=== PATIENT | female | born 1980 | race American Indian/Alaskan Native ===

== ENCOUNTER 2016-05-27 10:20 | Outpatient (CLI) | payer MEDICARE ==
[2016-05-27] MEDS ORDERED: XYLOCAINE TOPICAL 2% TP ONE (10:47)
== END 2016-05-27 10:21 | disposition home or self-care (01) ==
LOC: WOUND 10:20
PROVIDERS: ATTEND Podiatrist
DX: E11.621 Type 2 diabetes mellitus with foot ulcer (principal); L97.512 Non-pressure chronic ulcer of other part of right foot with fat layer exposed; R63.4 Abnormal weight loss; Z86.73 Personal history of transient ischemic attack (TIA), and cerebral infarction without residual deficits
CPT/HCPCS: 87075; 87076; 87116; 87186

== ENCOUNTER 2016-05-27 11:39 | Outpatient (CLI) | payer MEDICARE | END 2016-05-27 11:40 | disposition home or self-care (01) | LOC: WOUND 11:39 | PROVIDERS: ATTEND Podiatrist | DX: E11.621 Type 2 diabetes mellitus with foot ulcer (principal); L97.512 Non-pressure chronic ulcer of other part of right foot with fat layer exposed; L84 Corns and callosities; R63.4 Abnormal weight loss; Z86.73 Personal history of transient ischemic attack (TIA), and cerebral infarction without residual deficits | CPT/HCPCS: G0463-25 ==

== ENCOUNTER 2016-06-03 08:18 | Outpatient (CLI) | payer MEDICARE ==
[2016-06-03] MEDS ORDERED: XYLOCAINE TOPICAL 2% TP ONE ×2 (08:38→08:52)
== END 2016-06-03 08:19 | disposition home or self-care (01) ==
LOC: WOUND 08:18
PROVIDERS: ATTEND Podiatrist
DX: E11.621 Type 2 diabetes mellitus with foot ulcer (principal); L97.512 Non-pressure chronic ulcer of other part of right foot with fat layer exposed; L84 Corns and callosities; R63.4 Abnormal weight loss; Z86.73 Personal history of transient ischemic attack (TIA), and cerebral infarction without residual deficits

== ENCOUNTER 2017-07-27 08:04 | Outpatient (CLI) | payer MEDICARE ==
[2017-07-27] MEDS ORDERED: XYLOCAINE TOPICAL 4% TP ONE ×2 (08:37→09:00)
[2017-07-27 11:19] LABS: Hematocrit 32.2 % (30.3-42.9); Hemoglobin 10.4 gm/dl (10.1-14.3)
== END 2017-07-27 08:05 | disposition home or self-care (01) ==
LOC: WOUND 08:04
PROVIDERS: ATTEND Surgery
DX: E11.621 Type 2 diabetes mellitus with foot ulcer (principal); L97.521 Non-pressure chronic ulcer of other part of left foot limited to breakdown of skin; Z86.73 Personal history of transient ischemic attack (TIA), and cerebral infarction without residual deficits; Z90.710 Acquired absence of both cervix and uterus
CPT/HCPCS: 11042; 36415; 83036; 85014; 85018; G0463

== ENCOUNTER 2017-08-03 08:01 | Outpatient (CLI) | payer MEDICARE ==
[2017-08-03] MEDS ORDERED: XYLOCAINE TOPICAL 4% TP ONE ×2 (08:27→08:36)
== END 2017-08-03 08:02 | disposition home or self-care (01) ==
LOC: WOUND 08:01
PROVIDERS: ATTEND Surgery
DX: E11.621 Type 2 diabetes mellitus with foot ulcer (principal); L97.521 Non-pressure chronic ulcer of other part of left foot limited to breakdown of skin; Z86.73 Personal history of transient ischemic attack (TIA), and cerebral infarction without residual deficits; Z90.710 Acquired absence of both cervix and uterus

== ENCOUNTER 2017-08-10 08:03 | Outpatient (CLI) | payer MEDICARE ==
[2017-08-10] MEDS ORDERED: XYLOCAINE TOPICAL 4% TP ONE ×2 (08:15→08:35)
[2017-08-10] MEDS ORDERED: SILVER NITRATE TP ONE ×2 (09:03→09:19)
== END 2017-08-10 08:04 | disposition home or self-care (01) ==
LOC: WOUND 08:03
PROVIDERS: ATTEND Surgery
DX: E11.621 Type 2 diabetes mellitus with foot ulcer (principal); L97.521 Non-pressure chronic ulcer of other part of left foot limited to breakdown of skin; Z86.73 Personal history of transient ischemic attack (TIA), and cerebral infarction without residual deficits; Z90.710 Acquired absence of both cervix and uterus

== ENCOUNTER 2017-08-24 12:51 | Outpatient (CLI) | payer MEDICARE ==
[2017-08-24] MEDS ORDERED: XYLOCAINE TOPICAL 4% TP ONE ×2 (13:23→15:05)
== END 2017-08-24 12:52 | disposition home or self-care (01) ==
LOC: WOUND 12:51
PROVIDERS: ATTEND Surgery
DX: E11.621 Type 2 diabetes mellitus with foot ulcer (principal); L97.521 Non-pressure chronic ulcer of other part of left foot limited to breakdown of skin; Z86.73 Personal history of transient ischemic attack (TIA), and cerebral infarction without residual deficits; Z90.710 Acquired absence of both cervix and uterus

== ENCOUNTER 2018-09-19 02:38 | Inpatient (IN) | payer MEDICARE ==
[2018-09-19] MEDS ORDERED: NACL 0.9% 1000 ML 1,000 ML IV ONE ×3 (02:47→09:33)
[2018-09-19 03:05] LABS: Basophils # (Auto) 0.1 K/mm3 (0.0-0.1); Eosinophils # (Auto) 0.1 K/mm3 (0.0-0.4); Eosinophils % (Auto) 0.6 % (0.0-4.3); Hematocrit 35.3 % (30.3-42.9); Hemoglobin 11.6 gm/dl (10.1-14.3); Lymphocytes # (Auto) 1.9 K/mm3 (1.2-5.4); Lymphocytes % (Auto) 19.1 % (13.4-35.0); Mean Corpuscular HGB Conc 33 % (30-34); Mean Corpuscular Volume 83 fl (79-97); Monocytes # (Auto) 0.6 K/mm3 (0.0-0.8); Monocytes % (Auto) 6.2 % (0.0-7.3); Platelet Count 295 K/mm3 (140-440); Red Blood Count 4.26 M/mm3 (3.65-5.03); Red Cell Distribution Width 15.5 % (13.2-15.2)
[2018-09-19 03:20] LABS: Albumin 3.8 g/dL (3.9-5); Calcium 8.4 mg/dL (8.4-10.2)
[2018-09-19] MEDS ORDERED: REGLAN ONE (04:42)
[2018-09-19] MEDS ORDERED: PHENERGAN PR ONE ×2 (05:25→07:42)
[2018-09-19] MEDS ORDERED: MORPHINE IV ONE (07:42)
[2018-09-19] MEDS ORDERED: PEPCID IV ONE (07:43)
[2018-09-19] MEDS ORDERED: MAGNESIUM SULFATE 2GM/50ML 2 GM/50 ML BAG IV ONE (08:49)
[2018-09-19] MEDS ORDERED: HumuLIN R IV ONE (08:52)
--- NOTE | 2018-09-19 09:15 | Cat Scan Report ---
CT abdomen pelvis wo con INDICATION / CLINICAL INFORMATION: Generalized abdominal pain with nausea, vomiting and diarrhea. Acute renal insufficiency. Diabetes me llitus. TECHNIQUE: All CT scans at this location are performed using CT dose reduction for ALARA by means of automated e xposure control. COMPARISON: None available. FINDINGS: ABDOMEN: There is symmetric enhancement of both kidneys despite IV contrast. Retention of contrast fr om a prior exam could have this appearance. No other renal abnormality is seen. The gallbladder is heck rgically absent. The liver, spleen, bile ducts, pancreas, and adrenal glands demonstrate no significa nt abnormality. No adenopathy is seen. There is moderately severe diffuse thickening of the wall of the distal esophagus. The lung bases are clear. PELVIS: The distal ureters and urinary bladder are normal. No contrast is seen in the urinary bladder . The uterus is not identified. I see no evidence of adnexal mass or free fluid. A normal appendix is present and there is no evidence of diverticulitis. There is a moderate-sized fat-containing periumb ilical hernia without complication. No acute osseous abnormality is seen. IMPRESSION: 1. Diffuse thickening of the wall of the visualized distal esophagus is probably related to moderatel y severe esophagitis. Upper endoscopy may be helpful in further evaluation. 2. Faint contrast in both kidneys may be related to a prior contrast exam with cortical retention, an d the patient's history of acute renal failure. Signer Name: Joel Zimmerman MD Signed: 09/19/2018 9:11 AM Workstation Name: [id number]
--- NOTE | 2018-09-19 09:18 | Emergency Department Report ---
ED N/V/D HPI - General Chief complaint: Nausea/Vomiting/Diarrhea Stated complaint: VOMITING W/DIARRHEA Time Seen by Provider: 09/19/18 07:21 Source: patient, RN notes reviewed, old records reviewed Mode of arrival: Wheelchair Limitations: No Limitations - History of Present Illness Initial comments: 38-year-old female with a past medical history a previous TIA, diabetes, previous cholecystectomy, , hysterectomy and left BKA presents to the Hospital complains of nausea, vomiting, diarrhea, and abdominal pain 1 week. Poor by mouth tolerance reported. She complains of generalized burning, sharp and crampy abdominal pain that is worse with palpation. Pain rated 10/10 in intensity. She denies dysuria, melena, hematochezia, hematemesis, fever, sick contacts, recent antibiotic use, or recent travel. She denies a history of previous renal dysfunction. Pt was at an other ER last week for same symptoms and had a ct abd pelvis with IV contrast. PMD: [facility]. - Related Data Home Medications Medication Instructions Recorded Confirmed Last Taken Insulin Glargine [Lantus] 55 unit SUB-Q QHS 07/04/14 07/09/14 06/02/16 22:00 55 Insulin Aspart [NovoLOG Flexpen] 10 06/03/16 06/02/16 08:00 10units Allergies Allergy/AdvReac Type Severity Reaction Status Date / Time hydrocodone Allergy Itching Verified 07/27/17 09:00 metoclopramide [From Reglan] Allergy Hives Verified 09/19/18 04:43 ondansetron Allergy Hives Verified 07/27/17 09:00 [From Zofran (as hydrochloride)] prochlorperazine Allergy Hives Verified 09/19/18 04:43 [From Compazine] ED Review of Systems ROS: Stated complaint: VOMITING W/DIARRHEA Other details as noted in HPI Comment: All other systems reviewed and negative ED Past Medical Hx - Past Medical History Previous Medical History?: Yes Hx Hypertension: No Hx CVA: Yes (TIA) Hx Heart Attack/AMI: No Hx Congestive Heart Failure: No Hx Diabetes: Yes (since age of 18) Hx Liver Disease: No Hx Renal Disease: No Hx Sickle Cell Disease: No Hx Headaches / Migraines: Yes ( past hx) Hx Seizures: No Hx Asthma: No Hx COPD: No Hx HIV: No - Surgical History Hx Cholecystectomy: Yes (gallstones removed) Hx Breast Surgery: Yes (reduction) Additional Surgical History: X 2LEFT FOOT SURGERY. Hysterectomy. BKA left - Social History Smoking Status: Never Smoker Substance Use Type: None - Medications Home Medications: Home Medications Medication Instructions Recorded Confirmed Last Taken Type Insulin Glargine [Lantus] 55 unit SUB-Q QHS 07/04/14 07/09/14 06/02/16 22:00 History 55 Insulin Aspart [NovoLOG Flexpen] 10 06/03/16 06/02/16 08:00 History 10units ED Physical Exam - General Limitations: No Limitations ED Course Vital Signs 09/19/18 09/19/18 09/19/18 02:42 03:01 03:16 Temperature 97.4 F L Pulse Rate 111 H Respiratory 18 Rate Blood Pressure 144/95 167/97 Blood Pressure [Left] O2 Sat by Pulse 100 100 93 Oximetry 09/19/18 09/19/18 09/19/18 03:30 03:45 04:00 Temperature Pulse Rate Respiratory Rate Blood Pressure 158/97 158/97 158/97 Blood Pressure [Left] O2 Sat by Pulse 91 91 Oximetry 09/19/18 09/19/18 09/19/18 04:15 04:30 04:46 Temperature Pulse Rate Respiratory Rate Blood Pressure 158/97 194/114 158/97 Blood Pressure [Left] O2 Sat by Pulse 82 L 100 100 Oximetry 09/19/18 09/19/18 09/19/18 05:00 05:16 05:30 Temperature Pulse Rate Respiratory Rate Blood Pressure 197/130 197/130 175/109 Blood Pressure [Left] O2 Sat by Pulse 97 100 99 Oximetry 09/19/18 09/19/18 09/19/18 05:46 06:00 06:16 Temperature Pulse Rate Respiratory Rate Blood Pressure 175/109 182/101 182/101 Blood Pressure [Left] O2 Sat by Pulse 98 94 96 Oximetry 09/19/18 09/19/18 09/19/18 06:30 06:46 07:00 Temperature 98.9 F Pulse Rate 106 H Respiratory 16 Rate Blood Pressure 167/104 167/104 Blood Pressure 151/100 [Left] O2 Sat by Pulse 96 97 100 Oximetry 09/19/18 09:12 Temperature 98.9 F Pulse Rate 104 H Respiratory 16 Rate Blood Pressure Blood Pressure 141/97 [Left] O2 Sat by Pulse 98 Oximetry - Consultations Consultation #1: 09/19/18 09:47 case d/w Dr Perez, specification consultant nephro. will consult ED Medical Decision Making - Lab Data Result diagrams: 09/19/18 02:46 09/19/18 02:46 Lab Results 09/19/18 09/19/18 09/19/18 Range/Units 02:46 02:46 02:46 WBC 10.0 (4.5-11.0) K/mm3 RBC 4.26 (3.65-5.03) M/mm3 Hgb 11.6 (10.1-14.3) gm/dl Hct 35.3 (30.3-42.9) % MCV 83 (79-97) fl MCH 27 L (28-32) pg MCHC 33 (30-34) % RDW 15.5 H (13.2-15.2) % Plt Count 295 (140-440) K/mm3 Lymph % (Auto) 19.1 (13.4-35.0) % Wilkinson % (Auto) 6.2 (0.0-7.3) % Eos % (Auto) 0.6 (0.0-4.3) % Baso % (Auto) 1.0 (0.0-1.8) % Lymph # 1.9 (1.2-5.4) K/mm3 Wilkinson # 0.6 (0.0-0.8) K/mm3 Eos # 0.1 (0.0-0.4) K/mm3 Baso # 0.1 (0.0-0.1) K/mm3 Seg Neutrophils % 73.1 H (40.0-70.0) % Seg Neutrophils # 7.3 (1.8-7.7) K/mm3 VBG pH (7.320-7.420) Sodium 137 (137-145) mmol/L Potassium 3.3 L (3.6-5.0) mmol/L Chloride 89.1 L (98-107) mmol/L Carbon Dioxide 26 (22-30) mmol/L Anion Gap 25 mmol/L BUN 39 H (7-17) mg/dL Creatinine 2.3 H (0.7-1.2) mg/dL Estimated GFR 29 ml/min BUN/Creatinine Ratio 17 % Glucose 345 H (65-100) mg/dL POC Glucose (70-105) Calcium 8.4 (8.4-10.2) mg/dL Magnesium 1.50 L (1.7-2.3) mg/dL Total Bilirubin 0.70 (0.1-1.2) mg/dL AST 12 (5-40) units/L ALT 9 (7-56) units/L Alkaline Phosphatase 125 (35-129) units/L Total Protein 7.6 (6.3-8.2) g/dL Albumin 3.8 L (3.9-5) g/dL Albumin/Globulin Ratio 1.0 % Lipase 79 H (13-60) units/L 09/19/18 09/19/18 09/19/18 Range/Units 02:50 02:52 08:59 WBC (4.5-11.0) K/mm3 RBC (3.65-5.03) M/mm3 Hgb (10.1-14.3) gm/dl Hct (30.3-42.9) % MCV (79-97) fl MCH (28-32) pg MCHC (30-34) % RDW (13.2-15.2) % Plt Count (140-440) K/mm3 Lymph % (Auto) (13.4-35.0) % Wilkinson % (Auto) (0.0-7.3) % Eos % (Auto) (0.0-4.3) % Baso % (Auto) (0.0-1.8) % Lymph # (1.2-5.4) K/mm3 Wilkinson # (0.0-0.8) K/mm3 Eos # (0.0-0.4) K/mm3 Baso # (0.0-0.1) K/mm3 Seg Neutrophils % (40.0-70.0) % Seg Neutrophils # (1.8-7.7) K/mm3 VBG pH 7.533 H (7.320-7.420) Sodium (137-145) mmol/L Potassium (3.6-5.0) mmol/L Chloride (98-107) mmol/L Carbon Dioxide (22-30) mmol/L Anion Gap mmol/L BUN (7-17) mg/dL Creatinine (0.7-1.2) mg/dL Estimated GFR ml/min BUN/Creatinine Ratio % Glucose (65-100) mg/dL POC Glucose 316 H 342 H (70-105) Calcium (8.4-10.2) mg/dL Magnesium (1.7-2.3) mg/dL Total Bilirubin (0.1-1.2) mg/dL AST (5-40) units/L ALT (7-56) units/L Alkaline Phosphatase (35-129) units/L Total Protein (6.3-8.2) g/dL Albumin (3.9-5) g/dL Albumin/Globulin Ratio % Lipase (13-60) units/L - EKG Data -: EKG Interpreted by [facility] EKG shows normal: sinus rhythm, axis (qrs 45), QRS complexes (qrsd 94), ST-T waves (no stemi) Rate: normal (96) - EKG Data When compared to previous EKG there are: no significant change - Radiology Data Radiology results: report reviewed CT abdomen pelvis wo con INDICATION / CLINICAL INFORMATION: Generalized abdominal pain with nausea, vomiting and diarrhea. Acute renal insufficiency. Diabetes mellitus. TECHNIQUE: All CT scans at this location are performed using CT dose reduction for ALARA by means of automated exposure control. COMPARISON: None available. FINDINGS: ABDOMEN: There is symmetric enhancement of both kidneys despite IV contrast. Retention of contrast from a prior exam could have this appearance. No other renal abnormality is seen. The gallbladder is surgically absent. The liver, spleen, bile ducts, pancreas, and adrenal glands demonstrate no significant abnormality. No adenopathy is seen. There is moderately severe diffuse thickening of the wall of the distal esophagus. The lung bases are clear. PELVIS: The distal ureters and urinary bladder are normal. No contrast is seen in the urinary bladder. The uterus is not identified. I see no evidence of adnexal mass or free fluid. A normal appendix is present and there is no evidence of diverticulitis. There is a moderate-sized fat- containing periumbilical hernia without complication. No acute osseous abnormality is seen. IMPRESSION: 1. Diffuse thickening of the wall of the visualized distal esophagus is probably related to moderately severe esophagitis. Upper endoscopy may be helpful in further evaluation. 2. Faint contrast in both kidneys may be related to a prior contrast exam with cortical retention, and the patient's history of acute renal failure. - Medical Decision Making CT abdomen and pelvis today shows retention of IV contrast in the kidneys. Then patient admitted to receiving contrast for CT performed last week at another ER. Recent IV contrast administration plus dehydration due to poor by mouth tolerance could be contributing to acute renal dysfunction. Patient continues to have nausea and vomiting despite 50 mg of [place] Phenergan and she is allergic to other antibiotics that are available. Ativan 0.5 mg ordered and attempted to have nausea and vomiting. She also received morphine, normal saline, insulin, IV mag, IV kcl, and Pepcid in the ED. She will be admitted to the hospital for further treatment. Awaiting urine collection. Patient has not had urine output with IV fluids nephrology consulted - Differential Diagnosis gastroparesis, gastroenteritis, dehydration, intra-abdominal infection Critical Care Time: No Critical care attestation.: If time is entered above; I have spent that time in minutes in the direct care of this critically ill patient, excluding procedure time. ED Disposition Clinical Impression: Nausea vomiting and diarrhea, Intractable vomiting, Insulin dependent diabetes mellitus, Acute renal insufficiency, Hypokalemia, Hypomagnesemia, HTN (hypertension), Esophagitis Disposition: -09 OP ADMIT IP TO THIS HOSP Is pt being admited?: Yes Condition: Stable Instructions: Hypertension (ED) Referrals: JOEL RUDOLPH [Other] - 3-5 Days Time of Disposition: 09:30
[2018-09-19] MEDS ORDERED: ATIVAN IV ONE ×2 (09:19→21:27)
[2018-09-19] MEDS: KCL 10MEQ/100ML 10 MEQ/100 ML BAG IV SCH ×2 (10:07→16:27)
[2018-09-19] MEDS ORDERED: ULTRAM PO PRN (11:30)
--- NOTE | 2018-09-19 11:34 | History and Physical Report ---
History of Present Illness Date of examination: 09/19/18 Date of admission: 09/19/18 09:31 Chief complaint: Nausea/Vomiting/Diarrhea of one week duration History of present illness: 38-year-old -[place] female patient with significant past medical history of diabetes mellitus.Peripheral vascular dis status post left BKA hypertension dyslipidemia chronic gastritis presented to the emergency room with nausea vomiting diarrhea and abdominal pain off 5-7 days duration.Patient denies history of travel, consuming any new food, medications Patient was evaluated in the emergency room noted to have acute kidney injury, uncontrolled blood sugars to right abnormalities hypokalemia and hypomagnesemia, patient also had mild elevation of lipase.,At the time of my evaluation patient feels slightly better , continues to have intermittent nausea Patient claims compliance with medications Past History Past Medical History: diabetes, hypertension, hyperlipidemia, PVD, other (TIA) Past Surgical History: cholecystectomy, , hysterectomy, Other (left leg amputation. Breast reduction) Social history: lives with family, full code. denies: smoking, alcohol abuse, IV drug use Family history: hypertension Medications and Allergies Allergies Allergy/AdvReac Type Severity Reaction Status Date / Time hydrocodone Allergy Itching Verified 07/27/17 09:00 metoclopramide [From Reglan] Allergy Hives Verified 09/19/18 04:43 ondansetron Allergy Hives Verified 07/27/17 09:00 [From Zofran (as hydrochloride)] prochlorperazine Allergy Hives Verified 09/19/18 04:43 [From Compazine] Home Medications Medication Instructions Recorded Confirmed Last Taken Type AtorvaSTATin [Lipitor] 20 mg PO DAILY 09/19/18 09/19/18 Unknown History Furosemide [Lasix] 20 mg PO BID 09/19/18 09/19/18 Unknown History Insulin Aspart Protam & Aspart 10 units SQ QAM&QHS 09/19/18 09/19/18 Unknown History [NovoLOG Mix 70-30 Flexpen] Insulin Detemir [Levemir VIAL] 55 unit SQ QHS 09/19/18 09/19/18 Unknown History glipiZIDE [Glucotrol] 10 mg PO BID 09/19/18 09/19/18 Unknown History hydroCHLOROthiazide [HCTZ] 25 mg PO QDAY 09/19/18 09/19/18 Unknown History metFORMIN [Glucophage] 500 mg PO BID 09/19/18 09/19/18 Unknown History traMADol [Ultram] 50 mg PO BID PRN 09/19/18 09/19/18 Unknown History Active Meds: Active Medications Atorvastatin Calcium (Lipitor) 20 mg PO DAILY PAOLA Furosemide (Lasix) 20 mg PO BID PAOLA Glipizide (Glucotrol) 10 mg PO BID PAOLA Hydrochlorothiazide (Hctz) 25 mg PO QDAY PAOLA Potassium Chloride (Kcl 10meq/100ml) 10 meq in 100 mls @ 100 mls/hr IV Q1H PAOLA Stop: 09/19/18 11:59 Last Admin: 09/19/18 10:07 Dose: 100 mls/hr Documented by: Metformin HCl (Glucophage) 500 mg PO BID PAOLA Tramadol HCl (Ultram) 50 mg PO BID PRN PRN Reason: Pain Review of Systems Constitutional: fatigue, weakness, no weight loss, no weight gain, no fever, no chills Ears, nose, mouth and throat: no nasal congestion, no nasal discharge Cardiovascular: no chest pain, no orthopnea Respiratory: no cough, no shortness of breath Gastrointestinal: abdominal pain, nausea, vomiting, diarrhea Genitourinary Female: no flank pain, no dysuria Musculoskeletal: no neck stiffness, no myalgias, no arthritis Integumentary: no rash, no lesions Neurological: weakness, no paralysis, no numbness, no tingling, no seizures Psychiatric: no anxiety, no depression Endocrine: no cold intolerance, no heat intolerance, no polydipsia, no polyuria Hematologic/Lymphatic: no easy bruising, no easy bleeding Allergic/Immunologic: no urticaria, no allergic rhinitis Exam - Constitutional Vitals: Temp Pulse Resp BP Pulse Ox 98.9 F 96 H 16 142/97 98 09/19/18 09:12 09/19/18 10:26 09/19/18 10:26 09/19/18 10:26 09/19/18 10:26 General appearance: Present: no acute distress, well-nourished - EENT Eyes: Present: PERRL, EOM intact - Neck Neck: Present: supple, normal ROM - Respiratory Respiratory effort: normal Respiratory: bilateral: diminished, negative: rales, rhonchi, wheezing - Cardiovascular Rhythm: regular Heart Sounds: Present: S1 & S2 - Extremities Extremities: no ischemia, No edema - Abdominal General gastrointestinal: Present: soft, non-tender, non-distended, normal bowel sounds - Integumentary Integumentary: Present: clear - Musculoskeletal Musculoskeletal: left sided weakness (below-knee amputation) - Neurologic Neurologic: CNII-XII intact, moves all extremities Results - Labs CBC & Chem 7: 09/19/18 02:46 09/19/18 02:46 Labs: Abnormal lab results 09/19/18 09/19/18 09/19/18 Range/Units 02:46 02:46 02:46 MCH 27 L (28-32) pg RDW 15.5 H (13.2-15.2) % Seg Neutrophils % 73.1 H (40.0-70.0) % VBG pH (7.320-7.420) Potassium 3.3 L (3.6-5.0) mmol/L Chloride 89.1 L (98-107) mmol/L BUN 39 H (7-17) mg/dL Creatinine 2.3 H (0.7-1.2) mg/dL Glucose 345 H (65-100) mg/dL POC Glucose (70-105) Magnesium 1.50 L (1.7-2.3) mg/dL Albumin 3.8 L (3.9-5) g/dL Lipase 79 H (13-60) units/L 09/19/18 09/19/18 09/19/18 Range/Units 02:50 02:52 08:59 MCH (28-32) pg RDW (13.2-15.2) % Seg Neutrophils % (40.0-70.0) % VBG pH 7.533 H (7.320-7.420) Potassium (3.6-5.0) mmol/L Chloride (98-107) mmol/L BUN (7-17) mg/dL Creatinine (0.7-1.2) mg/dL Glucose (65-100) mg/dL POC Glucose 316 H 342 H (70-105) Magnesium (1.7-2.3) mg/dL Albumin (3.9-5) g/dL Lipase (13-60) units/L 09/19/18 09/19/18 Range/Units 10:30 11:12 MCH (28-32) pg RDW (13.2-15.2) % Seg Neutrophils % (40.0-70.0) % VBG pH (7.320-7.420) Potassium (3.6-5.0) mmol/L Chloride (98-107) mmol/L BUN (7-17) mg/dL Creatinine (0.7-1.2) mg/dL Glucose (65-100) mg/dL POC Glucose 282 H 279 H (70-105) Magnesium (1.7-2.3) mg/dL Albumin (3.9-5) g/dL Lipase (13-60) units/L Assessment and Plan --Acute Gastritis/Esophgitis; IV Protonix, antiemetics, IV fluids Clear liquids and advance as tolerated GI consult,NPO mid night CT abd and pelvis: 1. Diffuse thickening of the wall of the visualized distal esophagus is probably related to moderately severe esophagitis. Upper endoscopy may be helpful in further evaluation. 2. Faint contrast in both kidneys may be related to a prior contrast exam with cortical retention, and the patient's history of acute renal failure. --Hypokalemia/hypomagnesemia; replace per protocol Monitor electrolytes --Uncontrolled diabetes mellitus; patient claims complaints medications Accu-Chek sliding scale coverage and ADA diet long-acting insulin as well as oral hypoglycemics Check hemoglobin A1c, Diabetic education, nutrition consult Possible Home health nursing discharge for disease monitoring --Acute kidney injury; probably vasomotor nephropathy/ATN Gentle hydration, monitor renal function, avoid nephrotoxins Nephrology consulted --Hypertension; moderate control Resume home antihypertensive and when necessary medications --Dyslipidemia; on lipid-lowering meds Physical cholesterol diet --Peripheral vascular disease; status post left BKA Supportive care --DVT prophylaxis; Lovenox Monitor closely and adjust management as needed Plan of care is reviewed with the patient and her nurse Disposition; follow GI evaluation ,f/u clinically, discharge when the patient is stable I spent a total 50 minutes coordinating this admission
[2018-09-19] MEDS ORDERED: LASIX PO SCH (12:00)
[2018-09-19] MEDS ORDERED: HCTZ PO SCH (12:00)
[2018-09-19] MEDS: HumaLOG SUB-Q SCH ×4 (12:38→23:00)
--- NOTE | 2018-09-19 15:18 | Consultation ---
History of Present Illness - Reason for Consult Consult date: 09/19/18 acute renal failure Requesting physician: GUTIERREZ COOK - History of Present Illness This is a 38 yo AAF with past medical history of IDDM, hypertension, hyperlipidemia, ulcerative esophagitis/erosive gastritis, peripheral vascular disease s/p L BKA, who presents to [facility] with complaints of multiple episodes of nausea, vomiting, diarrhea, and abdominal pain for the last 1 week, which is described as cramp like no clear association with food, leading to decreased po intake. Pt denies dysuria, melena, hematochezia, hematemesis, fever, sick contacts, recent antibiotic use, or recent travel. Patient was seen at [facility] ER on 09/[address] for similar symptoms had CT A/P done with IV contrast, which did not reveal acute findings. labs from [facility] reviewed, BUN/Cr was 21/1.2mg/dl on 09/16/18, which increased to 27/2,11mg/dl on 09/17/18, however patient left AMA before any intervention could be made. Here in [facility], labs showed persistently elevated BUN/Cr at 39/2.3mg/dl along with mild hypokalemia, for which renal consult is requested. Pt received another CT A/P with IV contrast showing diffuse thickening of the distal esophageal wall. Pt denies previous renal disease denies recent NSAIDS use. Past History Past Medical History: diabetes, hypertension, renal failure Past Surgical History: hysterectomy, Other (L BKA) Family history: diabetes Medications and Allergies Allergies Allergy/AdvReac Type Severity Reaction Status Date / Time hydrocodone Allergy Itching Verified 07/27/17 09:00 metoclopramide [From Reglan] Allergy Hives Verified 09/19/18 04:43 ondansetron Allergy Hives Verified 07/27/17 09:00 [From Zofran (as hydrochloride)] prochlorperazine Allergy Hives Verified 09/19/18 04:43 [From Compazine] Home Medications Medication Instructions Recorded Confirmed Last Taken Type AtorvaSTATin [Lipitor] 20 mg PO DAILY 09/19/18 09/19/18 Unknown History Furosemide [Lasix] 20 mg PO BID 09/19/18 09/19/18 Unknown History Insulin Aspart Protam & Aspart 10 units SQ QAM&QHS 09/19/18 09/19/18 Unknown History [NovoLOG Mix 70-30 Flexpen] Insulin Detemir [Levemir VIAL] 55 unit SQ QHS 09/19/18 09/19/18 Unknown History glipiZIDE [Glucotrol] 10 mg PO BID 09/19/18 09/19/18 Unknown History hydroCHLOROthiazide [HCTZ] 25 mg PO QDAY 09/19/18 09/19/18 Unknown History metFORMIN [Glucophage] 500 mg PO BID 09/19/18 09/19/18 Unknown History traMADol [Ultram] 50 mg PO BID PRN 09/19/18 09/19/18 Unknown History Active Meds: Active Medications Atorvastatin Calcium (Lipitor) 20 mg PO DAILY [facility] Furosemide (Lasix) 20 mg PO BID [facility] Last Admin: 09/19/18 12:37 Dose: 20 mg Documented by: Glipizide (Glucotrol) 10 mg PO BIDDIAB [facility] Hydrochlorothiazide (Hctz) 25 mg PO QDAY [facility] Last Admin: 09/19/18 12:37 Dose: 25 mg Documented by: Insulin Glargine (Lantus) 55 units SUB-Q QHS [facility] Insulin Human Lispro (Humalog) 0 unit SUB-Q [facility]; Protocol Last Admin: 09/19/18 12:38 Dose: 3 unit Documented by: Metformin HCl (Glucophage) 500 mg PO BIDDIAB [facility] Tramadol HCl (Ultram) 50 mg PO BID PRN PRN Reason: Pain, Moderate (4-6) Review of Systems All systems: negative Constitutional: fatigue, weakness, malaise, poor appetite Gastrointestinal: abdominal pain, nausea, vomiting, diarrhea Exam - Vital Signs Vital signs: Vital Signs Temp Pulse Resp BP Pulse Ox 97.4 F L 111 H 18 144/95 100 09/19/18 02:42 09/19/18 02:42 09/19/18 02:42 09/19/18 02:42 09/19/18 02:42 - General Appearance General appearance: well-developed, appears stated age EENT: ATNC, PERRL, mucous membranes moist Neck: Present: neck supple Respiratory: Clear to Ascultation Heart: regular, S1S2 Gastrointestinal: Present: normoactive bowel sounds Integumentary: no rash, other (no edema ) Neurologic: no focal deficit, alert and oriented x3, strength 5/5, CN 3-12 intact Psychiatric: mood/affect appropriate, cooperative Results - Lab Results 09/19/18 02:46 09/19/18 02:46 Most recent lab results Calcium 8.4 mg/dL (8.4-10.2) 09/19/18 02:46 Magnesium 1.50 mg/dL (1.7-2.3) L 09/19/18 02:46 Laboratory Tests 09/19/18 09/19/18 09/19/18 02:46 02:46 02:52 VBG pH 7.533 H Calcium 8.4 Magnesium 1.50 L Total Bilirubin 0.70 AST 12 ALT 9 Alkaline Phosphatase 125 Total Protein 7.6 Albumin 3.8 L Albumin/Globulin Ratio 1.0 Lipase 79 H Assessment and Plan - Patient Problems (1) Acute renal insufficiency Current Visit: Yes Status: Acute Plan to address problem: KAT most likely secondary to pre-renal azotemia in the setting of nausea, vomiting/diarrhea, also uncontrolled glucose. Check UA urine lytes, urine protein/cr ratio. Given repeated IV contrast exposure in the setting of KAT, superimposed contrast induced nephropathy may contribute to declining eGFR. Pt s/p IV NS boluses in ER, cont IVF with NS at 75ml/hr, hold lasix/HCTZ for now, avoid further nephrotoxins, IV contrast, NSAIDS, maintain MAP > 65mmhg. Will monitor lytes/renal parameters closely and make further recommendations. (2) Esophagitis Current Visit: Yes Status: Acute Plan to address problem: cont PPI, follow GI recommendations (3) Hypokalemia Current Visit: Yes Status: Acute Plan to address problem: K supplementation with KDur (4) Insulin dependent diabetes mellitus Current Visit: Yes Status: Acute Plan to address problem: glucose control as per primary attending (5) Nausea vomiting and diarrhea Current Visit: Yes Status: Acute Plan to address problem: likely secondary to esophagitis/erosive gastritis cont IVF, pt treated with promethazine, follow GI recommendations
[2018-09-19] MEDS: MORPHINE IV PRN (16:27)
[2018-09-19] MEDS ORDERED: K-DUR PO ONE (17:07)
[2018-09-19] MEDS: PHENERGAN PR PRN (17:42)
[2018-09-19] MEDS: NACL 0.9% 1000 ML 1,000 ML IV SCH (17:42)
[2018-09-19] MEDS: GLUCOTROL PO SCH (18:28)
[2018-09-19 18:51] LABS: Bilirubin,Urine NEG (Negative); Blood,Urine MOD (Negative); Color,Urine Yellow (Yellow); Mucus,Urine FEW /HPF; Urobilinogen,Urine < 2.0 mg/dL (<2.0)
[2018-09-19] MEDS: PROTONIX IV SCH (21:45)
[2018-09-19] MEDS ORDERED: INSULIN DETEMIR 55 UNIT SQ SCH (22:00)
[2018-09-19] MEDS: LANTUS SUB-Q SCH (23:00)
[2018-09-20] MEDS: NACL 0.9% 1000 ML 1,000 ML IV SCH ×2 (03:57→18:55)
[2018-09-20 05:10] LABS: Basophils # (Auto) 0.1 K/mm3 (0.0-0.1); Eosinophils # (Auto) 0.2 K/mm3 (0.0-0.4); Eosinophils % (Auto) 1.8 % (0.0-4.3); Hematocrit 30.3 % (30.3-42.9); Lymphocytes # (Auto) 2.8 K/mm3 (1.2-5.4); Lymphocytes % (Auto) 32.1 % (13.4-35.0); Mean Corpuscular HGB Conc 33 % (30-34); Mean Corpuscular Volume 84 fl (79-97); Monocytes # (Auto) 0.6 K/mm3 (0.0-0.8); Monocytes % (Auto) 6.7 % (0.0-7.3); Platelet Count 257 K/mm3 (140-440); Red Blood Count 3.63 M/mm3 (3.65-5.03); Red Cell Distribution Width 15.2 % (13.2-15.2)
[2018-09-20 05:39] LABS: Calcium 7.7 mg/dL (8.4-10.2)
[2018-09-20] MEDS ORDERED: GLUCOPHAGE PO SCH (08:00)
--- NOTE | 2018-09-20 08:14 | Progress Note ---
Assessment and Plan Assessment and plan: 38-year-old -[place] female patient with significant past medical history of diabetes mellitus.Peripheral vascular dis status post left BKA hypertension dyslipidemia chronic gastritis presented to the emergency room with nausea vomiting diarrhea and abdominal pain off 5-7 days duration.Patient denies history of travel, consuming any new food, medications Patient was evaluated in the emergency room noted to have acute kidney injury, uncontrolled blood sugars to right abnormalities hypokalemia and hypomagnesemia, patient also had mild elevation of lipase., on admission it appears patient was beginning to have some improvement but renal function was significantly elevated , continues to have intermittent nausea Patient claims compliance with medications CT abd and pelvis: 1. Diffuse thickening of the wall of the visualized distal esophagus is probably related to moderately severe esophagitis. Upper endoscopy may be helpful in further evaluation. 2. Faint contrast in both kidneys may be related to a prior contrast exam with cortical retention, and the patient's history of acute renal failure. --Acute Gastritis/Esophgitis; with Nausea and vomiting on admission IV Protonix, antiemetics, IV fluids Start antifungal if any fever noted Clear liquids and advance as tolerated GI consult, NPO since midnight DUE TO PERSISTENT NAUSEA AND VOMITING --Hypokalemia/hypomagnesemia; replace per protocol Monitor electrolytes --Uncontrolled diabetes mellitus; patient claims complaints medications Accu-Chek sliding scale coverage and ADA diet long-acting insulin as well as ora l hypoglycemics Check hemoglobin A1c, Diabetic education, nutrition consult Possible Home health nursing discharge for disease monitoring --Acute kidney injury; probably vasomotor nephropathy/ATN Improving with gentle hydration Gentle hydration, monitor renal function, avoid nephrotoxins Nephrology consulted AND [facility] noted "....hold lasix/HCTZ for now, avoid further nephrotoxins, IV contrast, NSAIDS, maintain MAP > 65mmhg. Will monitor lytes/renal parameters closely and make further recommendations. " --Hypertension; moderate control Resume home antihypertensive and when necessary medications --Dyslipidemia; on lipid-lowering meds Physical cholesterol diet --Peripheral vascular disease; status post left BKA Supportive care --Anxiety DIsorder Ativan x 1 --DVT prophylaxis; Lovenox Monitor closely and adjust management as needed Plan of care is reviewed with the patient and her nurse Disposition; follow GI evaluation ,f/u clinically, discharge when the patient is stable History Interval history: Patient examined this morning continues to complain of nausea vomiting on though was improved this morning. Later this afternoon she started from nursing staff for something to relax apparently she's been given Ativan 2 already. Hospitalist Physical - Physical exam Narrative exam: VITAL SIGNS: Reviewed. GENERAL: The patient appears normally developed, Vital signs as documented. HEAD: No signs of head trauma. EYES: Pupils are equal. Extraocular motions intact. EARS: Hearing grossly intact. MOUTH: Oropharynx is normal. NECK: No adenopathy, no JVD. CHEST: Chest with clear breath sounds bilaterally. No wheezes, rales, or rhonchi. CARDIAC: Regular rate and rhythm. S1 and S2, without murmurs, gallops, or rubs. VASCULAR: No Edema. Peripheral pulses normal and equal in all extremities. ABDOMEN: Soft, non tender and non distended. No rebound or guarding, and no masses palpated. Bowel Sounds normal. MUSCULOSKELETAL: Good range of motion of all major joints. Extremities without clubbing, cyanosis or edema. NEUROLOGIC EXAM: Alert and oriented x 3 No focal sensory or strength deficits. Speech normal. Follows commands. PSYCHIATRIC: Mood normal. SKIN: detial exam as documented in skin assessment - Constitutional Vitals: Temp Pulse Resp BP Pulse Ox 98.9 F 87 20 152/81 100 09/20/18 05:33 09/20/18 05:33 09/20/18 05:33 09/20/18 05:33 09/20/18 05:33 General appearance: Present: no acute distress, well-nourished Results - Labs CBC & Chem 7: 09/20/18 04:22 09/20/18 04:22 Labs: Laboratory Last Values WBC 8.6 K/mm3 (4.5-11.0) 09/20/18 04:22 RBC 3.63 M/mm3 (3.65-5.03) L 09/20/18 04:22 Hgb 10.0 gm/dl (10.1-14.3) L 09/20/18 04:22 Hct 30.3 % (30.3-42.9) 09/20/18 04:22 MCV 84 fl (79-97) 09/20/18 04:22 MCH 28 pg (28-32) 09/20/18 04:22 MCHC 33 % (30-34) 09/20/18 04:22 RDW 15.2 % (13.2-15.2) 09/20/18 04:22 Plt Count 257 K/mm3 (140-440) 09/20/18 04:22 Lymph % (Auto) 32.1 % (13.4-35.0) 09/20/18 04:22 [place] % (Auto) 6.7 % (0.0-7.3) 09/20/18 04:22 Eos % (Auto) 1.8 % (0.0-4.3) 09/20/18 04:22 Baso % (Auto) 1.0 % (0.0-1.8) 09/20/18 04:22 Lymph # 2.8 K/mm3 (1.2-5.4) 09/20/18 04:22 [place] # 0.6 K/mm3 (0.0-0.8) 09/20/18 04:22 Eos # 0.2 K/mm3 (0.0-0.4) 09/20/18 04:22 Baso # 0.1 K/mm3 (0.0-0.1) 09/20/18 04:22 Seg Neutrophils % 58.4 % (40.0-70.0) 09/20/18 04:22 Seg Neutrophils # 5.0 K/mm3 (1.8-7.7) 09/20/18 04:22 VBG pH 7.533 (7.320-7.420) H 09/19/18 02:52 Sodium 140 mmol/L (137-145) 09/20/18 04:22 Potassium 3.0 mmol/L (3.6-5.0) L 09/20/18 04:22 Chloride 98.9 mmol/L (98-107) 09/20/18 04:22 Carbon Dioxide 28 mmol/L (22-30) 09/20/18 04:22 16 mmol/L 09/20/18 04:22 BUN 23 mg/dL (7-17) H 09/20/18 04:22 1.3 mg/dL (0.7-1.2) H 09/20/18 04:22 Estimated GFR 55 ml/min 09/20/18 04:22 18 % 09/20/18 04:22 Glucose 221 mg/dL (65-100) H 09/20/18 04:22 POC Glucose 208 (70-105) H 09/20/18 07:31 Calcium 7.7 mg/dL (8.4-10.2) L 09/20/18 04:22 Magnesium 1.90 mg/dL (1.7-2.3) 09/20/18 04:22 0.70 mg/dL (0.1-1.2) 09/19/18 02:46 AST 12 units/L (5-40) 09/19/18 02:46 ALT 9 units/L (7-56) 09/19/18 02:46 125 units/L (35-129) 09/19/18 02:46 7.6 g/dL (6.3-8.2) 09/19/18 02:46 3.8 g/dL (3.9-5) L 09/19/18 02:46 1.0 % 09/19/18 02:46 79 units/L (13-60) H 09/19/18 02:46 Yellow (Yellow) 09/19/18 18:01 Clear (Clear) 09/19/18 18:01 6.0 (5.0-7.0) 09/19/18 18:01 Ur Specific [place] 1.012 (1.003-1.030) 09/19/18 18:01 100 mg/dl mg/dL (Negative) 09/19/18 18:01 >=500 mg/dL (Negative) 09/19/18 18:01 20 mg/dL (Negative) 09/19/18 18:01 Mod (Negative) 09/19/18 18:01 Neg (Negative) 09/19/18 18:01 Neg (Negative) 09/19/18 18:01 < 2.0 mg/dL (<2.0) 09/19/18 18:01 Ur Leukocyte Esterase Neg (Negative) 09/19/18 18:01 1.0 /HPF (0.0-6.0) 09/19/18 18:01 9.0 /HPF (0.0-6.0) 09/19/18 18:01 U Epithel Cells (Auto) < 1.0 /HPF (0-13.0) 09/19/18 18:01 Few /HPF 09/19/18 18:01 Active Medications - Current Medications Current Medications: Generic Name Dose Route Start Last Admin Trade Name Freq PRN Reason Stop Dose Admin Atorvastatin Calcium 20 mg 09/20/18 10:00 Lipitor PO DAILY [facility] Enoxaparin Sodium 30 mg 09/20/18 10:00 Lovenox SUB-Q QDAY [facility] Glipizide 10 mg 09/19/18 17:00 09/19/18 18:28 Glucotrol PO Not Given BIDDIAB [facility] Sodium Chloride 1,000 mls @ 100 mls/hr 09/19/18 17:00 09/20/18 03:57 Nacl 0.9% 1000 Ml IV 75 mls/hr DIRECT [facility] Administration Potassium Chloride 10 meq in 100 mls @ 100 mls/hr 09/20/18 09:00 Kcl 10meq/100ml IV 09/20/18 12:59 Q1H [facility] Magnesium Sulfate 1 gm/ Sodium 52 mls @ 52 mls/hr 09/20/18 08:12 Chloride IV 09/20/18 09:11 ONCE ONE Insulin Glargine 55 units 09/19/18 22:00 09/19/18 23:00 Lantus SUB-Q Not Given QHS [facility] Insulin Human Lispro 0 unit 09/19/18 12:00 09/19/18 23:00 Humalog SUB-Q Not Given ACHS [facility] Protocol Insulin Human Lispro 8 unit 09/19/18 16:30 09/19/18 18:12 Humalog SUB-Q 8 unit AC [facility] Administration Morphine Sulfate 2 mg 09/19/18 16:07 09/19/18 16:27 Morphine IV 2 mg Q6H PRN Administration Pain, Moderate (4-6) Pantoprazole Sodium 40 mg 09/19/18 22:00 09/19/18 21:45 Protonix IV 40 mg BID [facility] Administration Promethazine HCl 12.5 mg 09/19/18 16:06 09/19/18 17:42 Phenergan [place] 12.5 mg Q6H PRN Administration Nausea And Vomiting Tramadol HCl 50 mg 09/19/18 11:30 Ultram PO BID PRN Pain, Moderate (4-6)
[2018-09-20] MEDS: MORPHINE IV PRN ×2 (09:30→15:16)
[2018-09-20] MEDS ORDERED: MAGNESIUM SULFATE 1 GM in NACL 0.9% 50 ML IV ONE (09:30)
[2018-09-20] MEDS ORDERED: LOVENOX SUB-Q SCH (10:00)
--- NOTE | 2018-09-20 10:04 | Gastroenterology Consultation ---
History of Present Illness - Reason for Consult Consult date: 09/20/18 Nausea, Vomiting, diarrhea Requesting physician: BRADEN SEWELL - History of Present Illness This is a pleasant 38-year-old female with significant medical hx as below presented to the emergency room with nausea vomiting diarrhea and abdominal pain off 5-7 days duration. Patient denies history of travel, consuming any new food, medications. She reports the abdominal pain is diffuse, constant, worse with eating better with nothing, associated with N/V/diarrhea, moderate to severe in severity, cramping in quality no radiation. She reports the symptoms are constant, mildly improved. Home meds reviewed/obtained/updated Past History Past Medical History: diabetes, hypertension, hyperlipidemia, PVD, other (TIA) Past Surgical History: cholecystectomy, , hysterectomy, Other (left leg amputation. Breast reduction) Social history: lives with family, full code. denies: smoking, alcohol abuse, IV drug use Family history: hypertension Medications and Allergies Allergies Allergy/AdvReac Type Severity Reaction Status Date / Time hydrocodone Allergy Itching Verified 07/27/17 09:00 metoclopramide [From Reglan] Allergy Hives Verified 09/19/18 04:43 ondansetron Allergy Hives Verified 07/27/17 09:00 [From Zofran (as hydrochloride)] prochlorperazine Allergy Hives Verified 09/19/18 04:43 [From Compazine] Home Medications Medication Instructions Recorded Confirmed Last Taken Type AtorvaSTATin [Lipitor] 20 mg PO DAILY 09/19/18 09/19/18 Unknown History Furosemide [Lasix] 20 mg PO BID 09/19/18 09/19/18 Unknown History Insulin Aspart Protam & Aspart 10 units SQ QAM&QHS 09/19/18 09/19/18 Unknown History [NovoLOG Mix 70-30 Flexpen] Insulin Detemir [Levemir VIAL] 55 unit SQ QHS 09/19/18 09/19/18 Unknown History glipiZIDE [Glucotrol] 10 mg PO BID 09/19/18 09/19/18 Unknown History hydroCHLOROthiazide [HCTZ] 25 mg PO QDAY 09/19/18 09/19/18 Unknown History metFORMIN [Glucophage] 500 mg PO BID 09/19/18 09/19/18 Unknown History traMADol [Ultram] 50 mg PO BID PRN 09/19/18 09/19/18 Unknown History Active Meds: Active Medications Atorvastatin Calcium (Lipitor) 20 mg PO DAILY [facility] Enoxaparin Sodium (Lovenox) 30 mg SUB-Q QDAY [facility] Glipizide (Glucotrol) 10 mg PO BIDDIAB [facility] Last Admin: 09/19/18 18:28 Dose: Not Given Documented by: Sodium Chloride (Nacl 0.9% 1000 Ml) 1,000 mls @ 100 mls/hr IV DIRECT [facility] Last Admin: 09/20/18 03:57 Dose: 75 mls/hr Documented by: Potassium Chloride (Kcl 10meq/100ml) 10 meq in 100 mls @ 100 mls/hr IV Q1H [facility] Stop: 09/20/18 13:59 Magnesium Sulfate 1 gm/ Sodium (Chloride) 52 mls @ 52 mls/hr IV ONCE ONE Stop: 09/20/18 10:29 Insulin Glargine (Lantus) 55 units SUB-Q QHS [facility] Last Admin: 09/19/18 23:00 Dose: Not Given Documented by: Insulin Human Lispro (Humalog) 0 unit SUB-Q ACHS [facility]; Protocol Last Admin: 09/19/18 23:00 Dose: Not Given Documented by: Insulin Human Lispro (Humalog) 8 unit SUB-Q [facility] Last Admin: 09/19/18 18:12 Dose: 8 unit Documented by: Morphine Sulfate (Morphine) 2 mg IV Q6H PRN PRN Reason: Pain, Moderate (4-6) Last Admin: 09/20/18 09:30 Dose: 2 mg Documented by: Pantoprazole Sodium (Protonix) 40 mg IV BID [facility] Last Admin: 09/19/18 21:45 Dose: 40 mg Documented by: Promethazine HCl (Phenergan) 12.5 mg TN Q6H PRN PRN Reason: Nausea And Vomiting Last Admin: 09/19/18 17:42 Dose: 12.5 mg Documented by: Tramadol HCl (Ultram) 50 mg PO BID PRN PRN Reason: Pain, Moderate (4-6) Review of Systems - Review of Systems All systems: negative Constitutional: fatigue, weakness Gastrointestinal: abdominal pain, nausea, vomiting, diarrhea Musculoskeletal: other (difficulty walking due to leg amputation) Exam - Constitutional Vital Signs: Temp Pulse Resp BP Pulse Ox 98.9 F 87 20 152/81 100 07/25/19 05:33 09/20/18 05:33 09/20/18 05:33 09/20/18 05:33 09/20/18 05:33 General appearance: no acute distress - EENT Eyes: other (no scleral icterus) ENT: hearing intact - Neck Neck: supple - Respiratory Respiratory effort: normal - Cardiovascular Rhythm: regular - Gastrointestinal General gastrointestinal: Present: soft, tender - Integumentary Integumentary: Present: dry - Musculoskeletal Musculoskeletal: other (leg amputation) - Neurologic Neurological: alert and oriented x3 - Psychiatric Psychiatric: appropriate mood/affect - Labs CBC & Chem 7: 09/20/18 04:22 09/20/18 04:22 Lab Results: Laboratory Results - last 24 hr 09/19/18 09/19/18 09/19/18 10:30 11:12 17:59 WBC RBC Hgb Hct MCV MCH MCHC RDW Plt Count Lymph % (Auto) [place] % (Auto) Eos % (Auto) Baso % (Auto) Lymph # [place] # Eos # Baso # Seg Neutrophils % Seg Neutrophils # Sodium Potassium Chloride Carbon Dioxide Anion Gap BUN Creatinine Estimated GFR BUN/Creatinine Ratio Glucose POC Glucose 282 H 279 H 239 H Calcium Magnesium Urine Color Urine Turbidity Urine pH Ur Specific [place] Urine Protein Urine Glucose (UA) Urine Ketones Urine Blood Urine Nitrite Urine Bilirubin Urine Urobilinogen Ur Leukocyte Esterase Urine WBC (Auto) Urine RBC (Auto) U Epithel Cells (Auto) Urine Mucus 09/19/18 09/19/18 09/20/18 18:01 22:28 04:22 WBC 8.6 RBC 3.63 L Hgb 10.0 L Hct 30.3 MCV 84 MCH 28 MCHC 33 RDW 15.2 Plt Count 257 Lymph % (Auto) 32.1 [place] % (Auto) 6.7 Eos % (Auto) 1.8 Baso % (Auto) 1.0 Lymph # 2.8 [place] # 0.6 Eos # 0.2 Baso # 0.1 Seg Neutrophils % 58.4 Seg Neutrophils # 5.0 Sodium Potassium Chloride Carbon Dioxide Anion Gap BUN Creatinine Estimated GFR BUN/Creatinine Ratio Glucose POC Glucose 116 H Calcium Magnesium Urine Color Yellow Urine Turbidity Clear Urine pH 6.0 Ur Specific [place] 1.012 Urine Protein 100 mg/dl Urine Glucose (UA) >=500 Urine Ketones 20 Urine Blood Mod Urine Nitrite Neg Urine Bilirubin Neg Urine Urobilinogen < 2.0 Ur Leukocyte Esterase Neg Urine WBC (Auto) 1.0 Urine RBC (Auto) 9.0 U Epithel Cells (Auto) < 1.0 Urine Mucus Few 09/20/18 09/20/18 04:22 07:31 WBC RBC Hgb Hct MCV MCH MCHC RDW Plt Count Lymph % (Auto) [place] % (Auto) Eos % (Auto) Baso % (Auto) Lymph # [place] # Eos # Baso # Seg Neutrophils % Seg Neutrophils # Sodium 140 Potassium 3.0 L Chloride 98.9 Carbon Dioxide 28 Anion Gap 16 BUN 23 H Creatinine 1.3 H Estimated GFR 55 BUN/Creatinine Ratio 18 Glucose 221 H POC Glucose 208 H Calcium 7.7 L Magnesium 1.90 Urine Color Urine Turbidity Urine pH Ur Specific [place] Urine Protein Urine Glucose (UA) Urine Ketones Urine Blood Urine Nitrite Urine Bilirubin Urine Urobilinogen Ur Leukocyte Esterase Urine WBC (Auto) Urine RBC (Auto) U Epithel Cells (Auto) Urine Mucus Assessment and Plan Most likely acute infectious etiology, supportive care, no indication for endoscopy at this juncture. - Patient Problems (1) Intractable vomiting Current Visit: Yes Status: Acute (2) Nausea vomiting and diarrhea Current Visit: Yes Status: Acute
[2018-09-20] MEDS: HumaLOG SUB-Q SCH ×7 (10:28→22:48)
[2018-09-20] MEDS: GLUCOTROL PO SCH ×2 (10:29→17:56)
[2018-09-20] MEDS: PHENERGAN PR PRN (10:58)
[2018-09-20] MEDS: KCL 10MEQ/100ML 10 MEQ/100 ML BAG IV SCH ×2 (11:49→15:11)
[2018-09-20] MEDS: PROTONIX IV SCH ×2 (13:55→22:47)
[2018-09-20] MEDS ORDERED: ATIVAN IV ONE (15:56)
--- NOTE | 2018-09-20 16:59 | Progress Note ---
Assessment and Plan - Patient Problems (1) Acute renal insufficiency Current Visit: Yes Status: Acute Plan to address problem: KAT most likely secondary to pre-renal azotemia in the setting of nausea, vomiting/diarrhea, also uncontrolled glucose. renal function improving with IVF, cont NS at 75ml/hr, hold lasix/HCTZ for now, avoid further nephrotoxins, IV contrast, NSAIDS, maintain MAP > 65mmhg. Will monitor lytes/renal parameters closely and make further recommendations. (2) Esophagitis Current Visit: Yes Status: Acute Plan to address problem: cont PPI, follow GI recommendations (3) Hypokalemia Current Visit: Yes Status: Acute Plan to address problem: K supplementation with KDur (4) Insulin dependent diabetes mellitus Current Visit: Yes Status: Acute Plan to address problem: glucose control as per primary attending (5) Nausea vomiting and diarrhea Current Visit: Yes Status: Acute Plan to address problem: likely secondary to esophagitis/erosive gastritis cont IVF, pt treated with promethazine, follow GI recommendations Subjective Date of service: 09/20/18 Principal diagnosis: KAT Interval history: Patient awake, alert, in NAD, denies fever, chills, SOB, CP, palpitations, dysuria Objective - Vital Signs Vital signs: Vital Signs - 12hr 09/20/18 09/20/18 09/20/18 05:33 12:02 12:03 Temperature 98.9 F 98.1 F Pulse Rate 87 99 H 95 H Respiratory 20 14 Rate Blood Pressure 152/81 163/92 O2 Sat by Pulse 100 87 100 Oximetry - General Appearance General appearance: well-developed, well-nourished, appears stated age EENT: ATNC, PERRL, mucous membranes moist Neck: no JVD Respiratory: Present: Clear to Ascultation Cardiology: regular, S1S2 Gastrointestinal: normoactive bowel sounds Integumentary: no rash, other (no edema ) Neurologic: no focal deficit, alert and oriented x3, strength 5/5, CN 3-12 intact Psychiatric: mood/affect appropriate, cooperative - Lab 09/20/18 04:22 09/20/18 04:22 Most recent lab results Calcium 7.7 mg/dL (8.4-10.2) L 09/20/18 04:22 Magnesium 1.90 mg/dL (1.7-2.3) 09/20/18 04:22 Medications & Allergies - Medications Allergies/Adverse Reactions: Allergies hydrocodone Allergy (Verified 07/27/17 09:00) Itching metoclopramide [From Reglan] Allergy (Verified 09/19/18 04:43) Hives ondansetron [From Zofran (as hydrochloride)] Allergy (Verified 07/27/17 09:00) Hives prochlorperazine [From Compazine] Allergy (Verified 09/19/18 04:43) Hives Home Medications: Home Medications Medication Instructions Recorded Confirmed Last Taken Type AtorvaSTATin [Lipitor] 20 mg PO DAILY 09/19/18 09/19/18 Unknown History Furosemide [Lasix] 20 mg PO BID 09/19/18 09/19/18 Unknown History Insulin Aspart Protam & Aspart 10 units SQ QAM&QHS 09/19/18 09/19/18 Unknown History [NovoLOG Mix 70-30 Flexpen] Insulin Detemir [Levemir VIAL] 55 unit SQ QHS 09/19/18 09/19/18 Unknown History glipiZIDE [Glucotrol] 10 mg PO BID 09/19/18 09/19/18 Unknown History hydroCHLOROthiazide [HCTZ] 25 mg PO QDAY 09/19/18 09/19/18 Unknown History metFORMIN [Glucophage] 500 mg PO BID 09/19/18 09/19/18 Unknown History traMADol [Ultram] 50 mg PO BID PRN 09/19/18 09/19/18 Unknown History Active Medications: Generic Name Dose Route Start Last Admin Trade Name Freq PRN Reason Stop Dose Admin Atorvastatin Calcium 20 mg 09/20/18 10:00 09/20/18 13:56 Lipitor PO 20 mg DAILY PAOLA Administration Enoxaparin Sodium 40 mg 09/21/18 10:00 Lovenox SUB-Q QDAY@1000 PAOLA Glipizide 10 mg 09/19/18 17:00 09/20/18 10:29 Glucotrol PO Not Given BIDDIAB PAOLA Sodium Chloride 1,000 mls @ 100 mls/hr 09/19/18 17:00 09/20/18 03:57 Nacl 0.9% 1000 Ml IV 75 mls/hr DIRECT PAOLA Administration Insulin Glargine 55 units 09/19/18 22:00 09/19/18 23:00 Lantus SUB-Q Not Given QHS [facility] Insulin Human Lispro 0 unit 09/19/18 12:00 09/20/18 11:30 Humalog SUB-Q Not Given ACHS [facility] Protocol Insulin Human Lispro 8 unit 09/19/18 16:30 09/20/18 11:30 Humalog SUB-Q Not Given AC [facility] Morphine Sulfate 2 mg 09/19/18 16:07 09/20/18 15:16 Morphine IV 2 mg Q6H PRN Administration Pain, Moderate (4-6) Pantoprazole Sodium 40 mg 09/19/18 22:00 09/20/18 13:55 Protonix IV 40 mg BID PAOLA Administration Promethazine HCl 12.5 mg 09/19/18 16:06 09/20/18 10:58 Phenergan IN 12.5 mg Q6H PRN Administration Nausea And Vomiting Tramadol HCl 50 mg 09/19/18 11:30 Ultram PO BID PRN Pain, Moderate (4-6)
[2018-09-20] MEDS: K-DUR PO ONE ×2 (17:18→17:31)
[2018-09-20] MEDS ORDERED: MORPHINE IM ONE (20:00)
[2018-09-20] MEDS: LANTUS SUB-Q SCH (22:47)
[2018-09-21] MEDS: KCL 10MEQ/100ML 10 MEQ/100 ML BAG IV SCH ×2 (00:49→02:28)
[2018-09-21] MEDS: MORPHINE IV PRN ×4 (02:26→21:27)
[2018-09-21] MEDS ORDERED: D50W (25GM) Syringe IV ONE (08:36)
[2018-09-21] MEDS: HumaLOG SUB-Q SCH ×8 (08:55→22:03)
[2018-09-21] MEDS: GLUCOTROL PO SCH (08:56)
[2018-09-21] MEDS: LOVENOX SUB-Q SCH (09:26)
[2018-09-21] MEDS: PROTONIX IV SCH ×2 (09:26→21:27)
[2018-09-21] MEDS: NACL 0.9% 1000 ML 1,000 ML IV SCH ×2 (09:32→22:40)
[2018-09-21] MEDS: PHENERGAN PR PRN (11:00)
--- NOTE | 2018-09-21 11:18 | Progress Note ---
Assessment and Plan - Patient Problems (1) Acute renal insufficiency Current Visit: Yes Status: Acute Plan to address problem: KAT most likely secondary to pre-renal azotemia in the setting of nausea, vomiting/diarrhea, also uncontrolled glucose. renal function improving with IVF, cont NS at 75ml/hr, hold lasix/HCTZ for now, avoid further nephrotoxins, IV contrast, NSAIDS, maintain MAP > 65mmhg. Will monitor lytes/renal parameters closely and make further recommendations. (2) Esophagitis Current Visit: Yes Status: Acute Plan to address problem: cont PPI, follow GI recommendations (3) Hypokalemia Current Visit: Yes Status: Acute Plan to address problem: K supplementation with KDur (4) Insulin dependent diabetes mellitus Current Visit: Yes Status: Acute Plan to address problem: glucose control as per primary attending (5) Nausea vomiting and diarrhea Current Visit: Yes Status: Acute Plan to address problem: likely secondary to esophagitis/erosive gastritis cont IVF, pt treated with promethazine, follow GI recommendations Subjective Date of service: 09/21/18 Principal diagnosis: KAT Interval history: Patient awake, alert, in NAD, denies fever, chills, SOB, CP, palpitations, dysuria. still c/o dysphagia, nausea Objective - Vital Signs Vital signs: Vital Signs - 12hr 09/20/18 23:47 Temperature 99.0 F Pulse Rate 83 Respiratory 18 Rate Blood Pressure 140/76 O2 Sat by Pulse 96 Oximetry - General Appearance General appearance: well-developed, well-nourished, appears stated age EENT: ATNC, PERRL, mucous membranes moist Neck: no JVD Respiratory: Present: Clear to Ascultation Cardiology: regular, S1S2 Gastrointestinal: normoactive bowel sounds Integumentary: no rash, other (no edema, L BKA) Neurologic: no focal deficit, alert and oriented x3, strength 5/5, CN 3-12 intact Psychiatric: mood/affect appropriate, cooperative - Lab 09/20/18 04:22 09/20/18 04:22 Most recent lab results Calcium 7.7 mg/dL (8.4-10.2) L 09/20/18 04:22 Magnesium 1.90 mg/dL (1.7-2.3) 09/20/18 04:22 Medications & Allergies - Medications Allergies/Adverse Reactions: Allergies hydrocodone Allergy (Verified 07/27/17 09:00) Itching metoclopramide [From Reglan] Allergy (Verified 09/19/18 04:43) Hives ondansetron [From Zofran (as hydrochloride)] Allergy (Verified 07/27/17 09:00) Hives prochlorperazine [From Compazine] Allergy (Verified 09/19/18 04:43) Hives Home Medications: Home Medications Medication Instructions Recorded Confirmed Last Taken Type AtorvaSTATin [Lipitor] 20 mg PO DAILY 09/19/18 09/19/18 Unknown History Furosemide [Lasix] 20 mg PO BID 09/19/18 09/19/18 Unknown History Insulin Aspart Protam & Aspart 10 units SQ QAM&QHS 09/19/18 09/19/18 Unknown His tory [NovoLOG Mix 70-30 Flexpen] Insulin Detemir [Levemir VIAL] 55 unit SQ QHS 09/19/18 09/19/18 Unknown History glipiZIDE [Glucotrol] 10 mg PO BID 09/19/18 09/19/18 Unknown History hydroCHLOROthiazide [HCTZ] 25 mg PO QDAY 09/19/18 09/19/18 Unknown History metFORMIN [Glucophage] 500 mg PO BID 09/19/18 09/19/18 Unknown History traMADol [Ultram] 50 mg PO BID PRN 09/19/18 09/19/18 Unknown History Active Medications: Generic Name Dose Route Start Last Admin Trade Name Freq PRN Reason Stop Dose Admin Atorvastatin Calcium 20 mg 09/20/18 10:00 09/21/18 09:26 Lipitor PO 20 mg DAILY PAOLA Administration Enoxaparin Sodium 40 mg 09/21/18 10:00 09/21/18 09:26 Lovenox SUB-Q 40 mg QDAY@1000 PAOLA Administration Sodium Chloride 1,000 mls @ 100 mls/hr 09/19/18 17:00 09/21/18 09:32 Nacl 0.9% 1000 Ml IV 75 mls/hr DIRECT PAOLA Administration Insulin Glargine 55 units 09/19/18 22:00 09/20/18 22:47 Lantus SUB-Q 55 units QHS [facility] Administration Insulin Human Lispro 0 unit 09/19/18 12:00 09/21/18 08:55 Humalog SUB-Q Not Given ACHS [facility] Protocol Insulin Human Lispro 8 unit 09/19/18 16:30 09/21/18 08:56 Humalog SUB-Q Not Given AC [facility] Morphine Sulfate 2 mg 09/19/18 16:07 09/21/18 09:30 Morphine IV 2 mg Q6H PRN Administration Pain, Moderate (4-6) Pantoprazole Sodium 40 mg 09/19/18 22:00 09/21/18 09:26 Protonix IV 40 mg BID PAOLA Administration Promethazine HCl 12.5 mg 09/19/18 16:06 09/20/18 10:58 Phenergan PA 12.5 mg Q6H PRN Administration Nausea And Vomiting Tramadol HCl 50 mg 09/19/18 11:30 Ultram PO BID PRN Pain, Moderate (4-6)
--- NOTE | 2018-09-21 11:38 | Gastroenterology Progress Note ---
Assessment and Plan Regarding acute N/V etc most likely acute infectious etiology but given worsening and refractory, will pursue EGD - Patient Problems (1) Intractable vomiting Current Visit: Yes Status: Acute (2) Nausea vomiting and diarrhea Current Visit: Yes Status: Acute Subjective Date of service: 09/21/18 Principal diagnosis: KAT Interval history: N/V intractable and if anything worse today Objective - Constitutional Vitals: Temp Pulse Resp BP Pulse Ox 99.0 F 83 18 140/76 96 09/20/18 23:47 09/20/18 23:47 09/20/18 23:47 09/20/18 23:47 09/20/18 23:47 General appearance: other (uncomfortable) - Respiratory Respiratory effort: normal - Gastrointestinal General gastrointestinal: Present: soft - Labs CBC & Chem 7: 09/20/18 04:22 09/21/18 13:07 Labs: Laboratory Results - last 24 hr 09/20/18 09/20/18 09/20/18 11:51 16:37 21:29 POC Glucose 225 H 231 H Lipase 68 H 09/20/18 09/21/18 09/21/18 21:29 07:57 11:12 POC Glucose 309 H 104 194 H Lipase
[2018-09-21] MEDS ORDERED: NACL 0.9% 1000 ML 1,000 ML ONE (13:45)
[2018-09-21] MEDS ORDERED: VERSED ONE (13:49)
[2018-09-21] MEDS ORDERED: DIPRIVAN 10 MG/ML IV ONE ×2 (13:50)
[2018-09-21 13:55] LABS: BUN/Creatinine Ratio 13; Blood Urea Nitrogen 12 mg/dL (7-17); Calcium 8.2 mg/dL (8.4-10.2); Hemolysis Index 45
[2018-09-21] MEDS ORDERED: XYLOCAINE MPF 2% ONE (14:00)
--- NOTE | 2018-09-21 14:25 | Operative Report ---
Operative Report Operative Report: DOS: 09/21/18 SURGEON: Alexis Yusuf MD EGD with biopsy REPORT PREOPERATIVE DIAGNOSIS and POSTOPERATIVE DIAGNOSIS: Intractable Nausea and vomiting ESTIMATED BLOOD LOSS: minimal DESCRIPTION OF PROCEDURE: A high-resolution EGD scope was passed through the oropharynx, esophagus, stomach, and second portion of duodenum. The scope was carefully withdrawn. Retroflexion was performed in the stomach. At the end of the procedure, the scope was cleaned using normal technique. Vital signs monitored continuously throughout. SEDATION: Provided by Anesthesiology Services. COMPLICATIONS: None. FINDINGS: * No gross lesions in the duodenum * Mild to moderate gastritis in the antrum, body, and fundus. Biopsies were taken to rule out H. Pylori infection. A total of 5 biopsies were taken, 2 from the antrum, 1 from the incisura, 2 from the body. * GE junction at 38cm from the incisors * Severe esophagitis in the distal 4cm of the esophagus, consistent with severe reflux esophagitis * Remainder of the exam was normal RECOMMENDATIONS: * f/u path results * No lesions on EGD to explain patient's intractable N/V, therefore given acute presentation most consistent with acute viral illness, please continue anti- emetics and supportive care, and would anticipate symptoms starting to improve over the next few days
--- NOTE | 2018-09-21 14:38 | Progress Note ---
Assessment and Plan Assessment and plan: 38-year-old -[place] female patient with significant past medical history of diabetes mellitus.Peripheral vascular dis status post left BKA hypertension dyslipidemia chronic gastritis presented to the emergency room with nausea vomiting diarrhea and abdominal pain off 5-7 days duration.Patient denies history of travel, consuming any new food, medications Patient was evaluated in the emergency room noted to have acute kidney injury, uncontrolled blood sugars to right abnormalities hypokalemia and hypomagnesemia, patient also had mild elevation of lipase., on admission it appears patient was beginning to have some improvement but renal function was significantly elevated , continues to have intermittent nausea Patient claims compliance with medications CT abd and pelvis: 1. Diffuse thickening of the wall of the visualized distal esophagus is probably related to moderately severe esophagitis. Upper endoscopy may be helpful in further evaluation. 2. Faint contrast in both kidneys may be related to a prior contrast exam with cortical retention, and the patient's history of acute renal failure. --Acute Gastritis/Esophgitis; with Nausea and vomiting on admission IV Protonix, antiemetics, IV fluids Start antifungal if any fever noted Clear liquids and advance as tolerated GI consult, NPO since midnight DUE TO PERSISTENT NAUSEA AND VOMITING ENDSOCOPY TODAY SHOWS MILD GASTRITIS, HPYROLI BIOPSY TAKEN, PATIENT WILL FOLLOW WITH GI FOR RESULT. WILL MONITOR OVERNIGHT --Hypokalemia/hypomagnesemia; replace per protocol Monitor electrolytes --Uncontrolled diabetes mellitus; patient claims complaints medications Accu-Chek sliding scale coverage and ADA diet long-acting insulin as well as oral hypoglycemics Check hemoglobin A1c, Diabetic education, nutrition consult Possible Home health nursing discharge for disease monitoring --Acute kidney injury; probably vasomotor nephropathy/ATN Improving with gentle hydration Gentle hydration, monitor renal function, avoid nephrotoxins Nephrology consulted AND [facility]Put noted "....hold lasix/HCTZ for now, avoid further nephrotoxins, IV contrast, NSAIDS, maintain MAP > 65mmhg. Will monitor lytes/renal parameters closely and make further recommendations. " --Hypertension; moderate control Resume home antihypertensive and when necessary medications --Dyslipidemia; on lipid-lowering meds Physical cholesterol diet --Peripheral vascular disease; status post left BKA Supportive care --Anxiety DIsorder Ativan x 1 --DVT prophylaxis; Lovenox Monitor closely and adjust management as needed Plan of care is reviewed with the patient and her nurse Disposition; follow GI evaluation ,f/u clinically, discharge when the patient is stable History Interval history: Patient examined this morning continues to complain of nausea but no vomiting today . No further report of anxiety Hospitalist Physical - Physical exam Narrative exam: VITAL SIGNS: Reviewed. GENERAL: The patient appears normally developed, Vital signs as documented. HEAD: No signs of head trauma. EYES: Pupils are equal. Extraocular motions intact. EARS: Hearing grossly intact. MOUTH: Oropharynx is normal. NECK: No adenopathy, no JVD. CHEST: Chest with clear breath sounds bilaterally. No wheezes, rales, or rhonchi. CARDIAC: Regular rate and rhythm. S1 and S2, without murmurs, gallops, or rubs. VASCULAR: No Edema. Peripheral pulses normal and equal in all extremities. ABDOMEN: Soft, non tender and non distended. No rebound or guarding, and no masses palpated. Bowel Sounds normal. MUSCULOSKELETAL: Good range of motion of all major joints. Extremities without clubbing, cyanosis or edema. NEUROLOGIC EXAM: Alert and oriented x 3 No focal sensory or strength deficits. Speech normal. Follows commands. PSYCHIATRIC: Mood normal. SKIN: detial exam as documented in skin assessment - Constitutional Vitals: Temp Pulse Resp BP Pulse Ox 98.4 F 87 17 199/91 100 09/21/18 13:30 09/21/18 13:30 09/21/18 13:30 09/21/18 13:30 09/21/18 13:30 General appearance: Present: no acute distress, well-nourished Results - Labs CBC & Chem 7: 09/20/18 04:22 09/21/18 13:07 Labs: Laboratory Last Values WBC 8.6 K/mm3 (4.5-11.0) 09/20/18 04:22 RBC 3.63 M/mm3 (3.65-5.03) L 09/20/18 04:22 Hgb 10.0 gm/dl (10.1-14.3) L 09/20/18 04:22 Hct 30.3 % (30.3-42.9) 09/20/18 04:22 MCV 84 fl (79-97) 09/20/18 04:22 MCH 28 pg (28-32) 09/20/18 04:22 MCHC 33 % (30-34) 09/20/18 04:22 RDW 15.2 % (13.2-15.2) 09/20/18 04:22 Plt Count 257 K/mm3 (140-440) 09/20/18 04:22 Lymph % (Auto) 32.1 % (13.4-35.0) 09/20/18 04:22 [place] % (Auto) 6.7 % (0.0-7.3) 09/20/18 04:22 Eos % (Auto) 1.8 % (0.0-4.3) 09/20/18 04:22 Baso % (Auto) 1.0 % (0.0-1.8) 09/20/18 04:22 Lymph # 2.8 K/mm3 (1.2-5.4) 09/20/18 04:22 [place] # 0.6 K/mm3 (0.0-0.8) 09/20/18 04:22 Eos # 0.2 K/mm3 (0.0-0.4) 09/20/18 04:22 Baso # 0.1 K/mm3 (0.0-0.1) 09/20/18 04:22 Seg Neutrophils % 58.4 % (40.0-70.0) 09/20/18 04:22 Seg Neutrophils # 5.0 K/mm3 (1.8-7.7) 09/20/18 04:22 VBG pH 7.533 (7.320-7.420) H 09/19/18 02:52 Sodium 140 mmol/L (137-145) 09/21/18 13:07 Potassium 3.5 mmol/L (3.6-5.0) L 09/21/18 13:07 Chloride 102.1 mmol/L (98-107) 09/21/18 13:07 Carbon Dioxide 27 mmol/L (22-30) 09/21/18 13:07 14 mmol/L 09/21/18 13:07 BUN 12 mg/dL (7-17) 09/21/18 13:07 0.9 mg/dL (0.7-1.2) 09/21/18 13:07 Estimated GFR > 60 ml/min 09/21/18 13:07 13 % 09/21/18 13:07 Glucose 159 mg/dL (65-100) H 09/21/18 13:07 POC Glucose 194 (70-105) H 09/21/18 11:12 Calcium 8.2 mg/dL (8.4-10.2) L 09/21/18 13:07 Magnesium 1.90 mg/dL (1.7-2.3) 09/20/18 04:22 0.70 mg/dL (0.1-1.2) 09/19/18 02:46 AST 12 units/L (5-40) 09/19/18 02:46 ALT 9 units/L (7-56) 09/19/18 02:46 125 units/L (35-129) 09/19/18 02:46 7.6 g/dL (6.3-8.2) 09/19/18 02:46 3.8 g/dL (3.9-5) L 09/19/18 02:46 1.0 % 09/19/18 02:46 68 units/L (13-60) H 09/20/18 21:29 Yellow (Yellow) 09/19/18 18:01 Clear (Clear) 09/19/18 18:01 6.0 (5.0-7.0) 09/19/18 18:01 Ur Specific [place] 1.012 (1.003-1.030) 09/19/18 18:01 100 mg/dl mg/dL (Negative) 09/19/18 18:01 >=500 mg/dL (Negative) 09/19/18 18:01 20 mg/dL (Negative) 09/19/18 18:01 Mod (Negative) 09/19/18 18:01 Neg (Negative) 09/19/18 18:01 Neg (Negative) 09/19/18 18:01 < 2.0 mg/dL (<2.0) 09/19/18 18:01 Ur Leukocyte Esterase Neg (Negative) 09/19/18 18:01 1.0 /HPF (0.0-6.0) 09/19/18 18:01 9.0 /HPF (0.0-6.0) 09/19/18 18:01 U Epithel Cells (Auto) < 1.0 /HPF (0-13.0) 09/19/18 18:01 Few /HPF 09/19/18 18:01 Active Medications - Current Medications Current Medications: Generic Name Dose Route Start Last Admin Trade Name Freq PRN Reason Stop Dose Admin Atorvastatin Calcium 20 mg 09/20/18 10:00 09/21/18 09:26 Lipitor PO 20 mg DAILY PAOLA Administration Enoxaparin Sodium 40 mg 09/21/18 10:00 09/21/18 09:26 Lovenox SUB-Q 40 mg QDAY@1000 PAOLA Administration Sodium Chloride 1,000 mls @ 100 mls/hr 09/19/18 17:00 09/21/18 09:32 Nacl 0.9% 1000 Ml IV 75 mls/hr DIRECT PAOLA Administration Fluconazole 100 mg in 50 mls @ 50 mls/hr 09/21/18 12:00 Diflucan/Ns 100 Mg/50 Ml IV Q24HR [facility] Insulin Glargine 55 units 09/19/18 22:00 09/20/18 22:47 Lantus SUB-Q 55 units QHS PAOLA Administration Insulin Human Lispro 0 unit 09/19/18 12:00 09/21/18 13:24 Humalog SUB-Q Not Given [facility] Protocol Insulin Human Lispro 8 unit 09/19/18 16:30 09/21/18 13:24 Humalog SUB-Q Not Given [facility] Lidocaine HCl 15 ml 09/21/18 14:00 Magic Mouthwash PO TID [facility] Morphine Sulfate 2 mg 09/19/18 16:07 09/21/18 09:30 Morphine IV 2 mg Q6H PRN Administration Pain, Moderate (4-6) Pantoprazole Sodium 40 mg 09/19/18 22:00 09/21/18 09:26 Protonix IV 40 mg BID PAOLA Administration Promethazine HCl 12.5 mg 09/19/18 16:06 09/21/18 11:00 Phenergan MD 12.5 mg Q6H PRN Administration Nausea And Vomiting Sucralfate 1 gm 09/21/18 16:30 Carafate PO ACHS [facility] Tramadol HCl 50 mg 09/19/18 11:30 Ultram PO BID PRN Pain, Moderate (4-6) Nutrition/Malnutrition Assess - Dietary Evaluation Nutrition/Malnutrition Findings: Nutrition Notes Start: 09/20/18 16:42 Freq: Status: Active Protocol: Document 09/20/18 16:42 RM (Rec: 09/20/18 16:46 RM [id number]) Nutrition Notes Initial or Follow up Assessment Current Diagnosis Diabetes Other Pertinent Diagnosis N/V X 7 days, Abdominal pain Current Diet Clear liquid Labs/Tests Reviewed Pertinent Medications Reviewed Height 5 ft 8 in Weight 86.183 kg [place] Body Weight (kg) 63.63 BMI 28.8 Subjective/Other Information 3A rounds patient NPO in place earlier today. Clear liquid diet ordered later today. Pt stated that DIRECTOR CASE she was unable to keep anything down X 7 days. Unsure of UBW. No temporal or orbital wasting . Burn Absent Trauma Absent #1 Nutrition Diagnosis Inadequate oral intake Etiology N/V As Evidenced by Signs and Symptoms pt on clear liquid diet Is patient on ventilator? No Is Patient Ambulatory and/or Out of Bed Yes REE-([facility]-ambulatory/OOB) [ [email or web address]] Calculation Used for Recommendations [facility] Additional Notes Protein Needs: 69-86g (0.8-1g/ kg) Fluid Needs: 1 ml/kcal Nutrition Intervention Change Diet Order: Advance diet when medically able Add Supplement/Snack (indicate name/kcal Ensure Clear 1 daily /protein ) Provides kCal: 240 Provides Protein (gm) 8 Goal #1 PO tolerance Goal #2 Diet advancement Anticipated Discharge Needs: Unable to determine at this time Follow-Up By: 09/24/18 Additional Comments Follow for PO and ONS intakes
--- NOTE | 2018-09-21 14:59 | Anesthesia Consultation ---
Anesthesia Consult and Med Hx Date of service: 09/21/18 - Airway Anesthetic Teeth Evaluation: Good ROM Head & Neck: Adequate Mental/Hyoid Distance: Adequate Mallampati Class: Class I Intubation Access Assessment: Good - Pulmonary Exam CTA: Yes - Cardiac Exam Cardiac Exam: RRR - Pre-Operative Health Status ASA Pre-Surgery Classification: ASA2, Emergency Proposed Anesthetic Plan: MAC - Pulmonary Hx Smoking: No Hx Asthma: No Hx Respiratory Symptoms: No SOB: No COPD: No Hx Pneumonia: No Hx Sleep Apnea: No - Cardiovascular System Hx Hypertension: Yes Hx Coronary Artery Disease: No Hx Heart Attack/AMI: No Hx Angina: No Hx Cardia Arrhythmia: (tachycardia) Hx Valvular Heart Disease: No - Central Nervous System Hx Neuromuscular Disorder: No Hx Seizures: No CVA: Yes (2008 left side weakness at times) Hx Back Pain: No Hx Psychiatric Problems: No - Gastrointestinal Hx Ulcer: No Hx Gastroesophageal Reflux Disease: No - Endocrine Hx Renal Disease: No Hx End Stage Renal Disease: No Hx Liver Disease: No Hx Insulin Dependent Diabetes: Yes Hx Thyroid Disease: No - Hematic Hx Anemia: Yes (recent transfusion 04/2014. followed by hematology) Hx Sickle Cell Disease: No - Other Systems Hx Alcohol Use: No Hx Substance Use: No Hx Cancer: No Hx Obesity: No
--- NOTE | 2018-09-21 14:59 | Anesthesia Day of Surgery ---
Anesthesia Day of Surgery - Day of Surgery Patient Examined: Yes Patient H&P Reviewed: Yes Patient is NPO: Yes
[2018-09-21] MEDS ORDERED: NACL 0.9% 1000 ML 1,000 ML IV SCH (15:00)
[2018-09-21] MEDS: MAGIC MOUTHWASH PO SCH ×2 (15:31→20:48)
[2018-09-21] MEDS: DIFLUCAN/NS 100 MG/50 ML 100 MG/50 ML BAG IV SCH (15:31)
[2018-09-21] MEDS: CARAFATE PO SCH ×2 (17:31→21:27)
[2018-09-21] MEDS: SINEquan PO SCH ×2 (20:49→22:04)
[2018-09-21] MEDS ORDERED: ATIVAN IV ONE (21:32)
[2018-09-21] MEDS: LANTUS SUB-Q SCH (22:04)
[2018-09-22] MEDS: MORPHINE IV PRN ×2 (04:38→11:15)
[2018-09-22 06:49] LABS: BUN/Creatinine Ratio 9; Blood Urea Nitrogen 9 mg/dL (7-17); Calcium 7.7 mg/dL (8.4-10.2); Hemolysis Index 6
[2018-09-22] MEDS ORDERED: POTASSIUM CHLORIDE PO ONE (07:00)
[2018-09-22] MEDS ORDERED: MAGNESIUM SULFATE 1 GM in NACL 0.9% 50 ML IV ONE (07:00)
--- NOTE | 2018-09-22 08:29 | Discharge Summary ---
Providers - Providers Date of Admission: 09/19/18 09:31 Attending physician: BRADEN SEWELL MD 09/19/18 09:47 Consult to Physician [CONS] Urgent Comment: Consulting Provider: ALTAGRACIA CARVALHO Physician Instructions: Reason For Exam: acute renal insuf 09/19/18 18:46 Consult to Physician [CONS] Routine Comment: Consulting Provider: MANDEEP WINKLER Physician Instructions: Reason For Exam: N/Vomiting/diarrhea/ possible Esophagitis on CT Hospitalization Condition: Stable Hospital course: 38-year-old -[place] female patient with significant past medical history of diabetes mellitus.Peripheral vascular dis status post left BKA hypertension dyslipidemia chronic gastritis presented to the emergency room with nausea vomiting diarrhea and abdominal pain off 5-7 days duration.Patient denies history of travel, consuming any new food, medications Patient was evaluated in the emergency room noted to have acute kidney injury, uncontrolled blood sugars to right abnormalities hypokalemia and hypomagnesemia, patient also had mild elevation of lipase., on admission it appears patient was beginning to have some improvement but renal function was significantly elevat ed , continues to have intermittent nausea Patient claims compliance with medications CT abd and pelvis: 1. Diffuse thickening of the wall of the visualized distal esophagus is probably related to moderately severe esophagitis. Upper endoscopy may be helpful in further evaluation. 2. Faint contrast in both kidneys may be related to a prior contrast exam with cortical retention, and the patient's history of acute renal failure. --Acute Gastritis/Esophgitis; with Nausea and vomiting on admission IV Protonix, antiemetics, IV fluids per GI consistient with viral etiology will discontinue antifungal Clear liquids and advance as tolerated GI consult, NPO since midnight DUE TO PERSISTENT NAUSEA AND VOMITING ENDSOCOPY TODAY SHOWS MILD GASTRITIS, HPYROLI BIOPSY TAKEN, PATIENT WILL FOLLOW WITH GI FOR RESULT. WILL MONITOR OVERNIGHT --Hypokalemia/hypomagnesemia; replace per protocol Monitor electrolytes --Uncontrolled diabetes mellitus; patient claims complaints medications Accu-Chek sliding scale coverage and ADA diet long-acting insulin as well as oral hypoglycemics Check hemoglobin A1c, Diabetic education, nutrition consult Possible Home health nursing discharge for disease monitoring --Acute kidney injury; probably vasomotor nephropathy/ATN Improving with gentle hydration Gentle hydration, monitor renal function, avoid nephrotoxins Nephrology consulted AND [facility] noted "....hold lasix/HCTZ for now, avoid further nephrotoxins, IV contrast, NSAIDS, maintain MAP > 65mmhg. Will monitor lytes/renal parameters closely and make further recommendations. " --Hypertension; moderate control Resume home antihypertensive and when necessary medications --Dyslipidemia; on lipid-lowering meds Physical cholesterol diet --Peripheral vascular disease; status post left BKA Supportive care --Anxiety DIsorder Ativan x 1 --DVT prophylaxis; Lovenox Monitor closely and adjust management as needed Plan of care is reviewed with the patient and her nurse Disposition; follow GI evaluation ,f/u clinically, discharge when the patient is stable Disposition: - TO HOME OR SELFCARE Time spent for discharge: 35 mins Core Measure Documentation - Palliative Care Palliative Care/ Comfort Measures: Not Applicable Exam - Physical Exam Narrative exam: VITAL SIGNS: Reviewed. GENERAL: The patient appears normally developed, Vital signs as documented. HEAD: No signs of head trauma. EYES: Pupils are equal. Extraocular motions intact. EARS: Hearing grossly intact. MOUTH: Oropharynx is normal. NECK: No adenopathy, no JVD. CHEST: Chest with clear breath sounds bilaterally. No wheezes, rales, or rhonchi. CARDIAC: Regular rate and rhythm. S1 and S2, without murmurs, gallops, or rubs. VASCULAR: No Edema. Peripheral pulses normal and equal in all extremities. ABDOMEN: Soft, non tender and non distended. No rebound or guarding, and no masses palpated. Bowel Sounds normal. MUSCULOSKELETAL: Good range of motion of all major joints. left BKA, Extremities without clubbing, cyanosis or edema. NEUROLOGIC EXAM: Alert and oriented x 3 No focal sensory or strength deficits. Speech normal. Follows commands. PSYCHIATRIC: Mood normal. SKIN: detial exam as documented in skin assessment - Constitutional Vitals: Temp Pulse Resp BP Pulse Ox 98.2 F 94 H 20 120/78 100 09/21/18 22:13 09/21/18 22:13 09/21/18 22:13 09/21/18 22:13 09/21/18 22:13 Plan Activity: advance as tolerated, fall precautions Diet: low fat, diabetic Special Instructions: record daily BP diary, record blood sugar diary Follow up with: JOEL RUDOLPH [Other] - 3-5 Days HORTENCIA SHAFFER MD [Staff Physician] - 7 Days Prescriptions: Nystas/Diphen/Xyl Visc/Mylanta [Magic Mouthwash] 15 ml PO TID #200 ml Ondansetron [Zofran Odt] 4 mg PO Q8HR #30 tab.travis
[2018-09-22] MEDS: CARAFATE PO SCH (08:58)
[2018-09-22] MEDS: HumaLOG SUB-Q SCH ×2 (09:11→09:12)
[2018-09-22] MEDS: PROTONIX IV SCH (09:42)
[2018-09-22] MEDS: DIFLUCAN/NS 100 MG/50 ML 100 MG/50 ML BAG IV SCH (09:43)
[2018-09-22] MEDS: LOVENOX SUB-Q SCH (09:43)
[2018-09-22] MEDS: MAGIC MOUTHWASH PO SCH (09:48)
--- NOTE | 2018-09-22 10:43 | Progress Note ---
Assessment and Plan - Patient Problems (1) Other acute kidney failure Current Visit: Yes Status: Acute Plan to address problem: Kidney function has improved back to normal. Electrolytes within normal limits except for hypokalemia. We'll sign off. Please reconsult if needed (2) HTN (hypertension) Current Visit: Yes Status: Acute Plan to address problem: Follow blood pressure on current medications (3) Hypokalemia Current Visit: Yes Status: Acute Plan to address problem: Supplement potassium and follow-up level (4) Insulin dependent diabetes mellitus Current Visit: Yes Status: Acute Plan to address problem: Blood sugar management by primary attending (5) Intractable vomiting Current Visit: Yes Status: Acute Plan to address problem: Continue antiemetic Subjective Date of service: 09/22/18 Principal diagnosis: KAT Interval history: Patient seen lying in bed. Currently tolerating liquid diet. No nausea or vomiting this morning. Still has some abdominal discomfort Objective - Exam Narrative Exam: Younger, comfortably lying in bed in no acute distress HEENT: NCAT, pink oral mucous membrane Neck: Supple, no venous distention CVS: S1S2 RRR with no murmur, rub or gallop Chest: Clear to auscultation Abdomen: Protuberant, soft, mild tenderness, no organomegaly, bowel sounds are present Extremities: No edema Neuro: Awake, alert no focal deficits - Lab 09/20/18 04:22 09/22/18 05:17 Most recent lab results Calcium 7.7 mg/dL (8.4-10.2) L 09/22/18 05:17 Magnesium 1.90 mg/dL (1.7-2.3) 09/20/18 04:22 Medications & Allergies - Medications Allergies/Adverse Reactions: Allergies hydrocodone Allergy (Verified 07/27/17 09:00) Itching metoclopramide [From Reglan] Allergy (Verified 09/19/18 04:43) Hives ondansetron [From Zofran (as hydrochloride)] Allergy (Verified 07/27/17 09:00) Hives prochlorperazine [From Compazine] Allergy (Verified 09/19/18 04:43) Hives Home Medications: Home Medications Medication Instructions Recorded Confirmed Last Taken Type AtorvaSTATin [Lipitor] 20 mg PO DAILY 09/19/18 09/19/18 Unknown History Furosemide [Lasix TAB] 20 mg PO BID 09/19/18 09/19/18 Unknown History Insulin Aspart Protam & Aspart 10 units SQ QAM&QHS 09/19/18 09/19/18 Unknown History [NovoLOG Mix 70-30 Flexpen] Insulin Detemir [Levemir VIAL] 55 unit SQ QHS 09/19/18 09/19/18 Unknown History glipiZIDE [Glucotrol] 10 mg PO BID 09/19/18 09/19/18 Unknown History hydroCHLOROthiazide [HCTZ] 25 mg PO QDAY 09/19/18 09/19/18 Unknown History metFORMIN [Glucophage] 500 mg PO BID 09/19/18 09/19/18 Unknown History traMADol [Ultram 50 MG tab] 50 mg PO BID PRN 09/19/18 09/19/18 Unknown History Doxepin [SINEquan] 50 mg PO QHS 09/21/18 09/21/18 Unknown History Nystas/Diphen/Xyl Visc/Mylanta 15 ml PO TID #200 ml 09/22/18 Unknown Rx [Magic Mouthwash] Ondansetron [Zofran Odt] 4 mg PO Q8HR #30 tab.rapdis 09/22/18 Unknown Rx Active Medications: Generic Name Dose Route Start Last Admin Trade Name Freq PRN Reason Stop Dose Admin Atorvastatin Calcium 20 mg 09/20/18 10:00 09/22/18 09:42 Lipitor PO 20 mg DAILY PAOLA Administration Doxepin HCl 50 mg 09/21/18 22:00 09/21/18 22:04 Sinequan PO Not Given QHS PAOLA Enoxaparin Sodium 40 mg 09/21/18 10:00 09/22/18 09:43 Lovenox SUB-Q 40 mg QDAY@1000 PAOLA Administration Sodium Chloride 1,000 mls @ 100 mls/hr 09/19/18 17:00 09/21/18 22:40 Nacl 0.9% 1000 Ml IV 100 mls/hr DIRECT PAOLA Administration Fluconazole 100 mg in 50 mls @ 50 mls/hr 09/21/18 12:00 09/22/18 09:43 Diflucan/Ns 100 Mg/50 Ml IV 50 mls/hr Q24HR PAOLA Administration Sodium Chloride 1,000 mls @ 50 mls/hr 09/21/18 15:00 Nacl 0.9% 1000 Ml IV 09/22/18 14:59 DIRECT [facility] Insulin Glargine 55 units 09/19/18 22:00 09/21/18 22:04 [facility] Human Lispro 0 unit 09/19/18 12:00 09/22/18 09:11 Humalog SUB-Q 8 unit ACHS [facility] Administration Protocol Insulin Human Lispro 8 unit 09/19/18 16:30 09/22/18 09:12 Humalog SUB-Q 8 unit AC [facility] Administration Lidocaine HCl 15 ml 09/21/18 14:00 09/22/18 09:48 Magic Mouthwash PO 15 ml TID [facility] Administration Morphine Sulfate 2 mg 09/19/18 16:07 09/22/18 04:38 Morphine IV 2 mg Q6H PRN Administration Pain, Moderate (4-6) Pantoprazole Sodium 40 mg 09/19/18 22:00 09/22/18 09:42 Protonix IV 40 mg BID [facility] Administration Promethazine HCl 12.5 mg 09/19/18 16:06 09/21/18 11:00 Phenergan GA 12.5 mg Q6H PRN Administration Nausea And Vomiting Sucralfate 1 gm 09/21/18 16:30 09/22/18 08:58 Carafate PO 1 gm [facility] Administration Tramadol HCl 50 mg 09/19/18 11:30 Ultram PO BID PRN Pain, Moderate (4-6)
[2018-09-22 12:18] VITALS: BP 126/88
== END 2018-09-22 12:30 | disposition home or self-care (01) | DRG 391 ==
LOC: ED 02:38 → 3A 09:31
PROVIDERS: ADMIT Internal Medicine; ATTEND Internal Medicine
PROC: 0DB58ZX Excision of Esophagus, Via Natural or Artificial Opening Endoscopic, Diagnostic (ICD-10-PCS; principal; 2018-09-21)
PROC: 0DB78ZX Excision of Stomach, Pylorus, Via Natural or Artificial Opening Endoscopic, Diagnostic (ICD-10-PCS; 2018-09-21)
DX: K29.00 Acute gastritis without bleeding (principal); N17.0 Acute kidney failure with tubular necrosis; K20.9 Esophagitis, unspecified; I10 Essential (primary) hypertension; E87.6 Hypokalemia; E83.42 Hypomagnesemia; E78.5 Hyperlipidemia, unspecified; E11.51 Type 2 diabetes mellitus with diabetic peripheral angiopathy without gangrene; F41.9 Anxiety disorder, unspecified; G43.909 Migraine, unspecified, not intractable, without status migrainosus; Z90.710 Acquired absence of both cervix and uterus; Z83.3 Family history of diabetes mellitus; Z86.73 Personal history of transient ischemic attack (TIA), and cerebral infarction without residual deficits; Z79.4 Long term (current) use of insulin; Z89.512 Acquired absence of left leg below knee; Z88.5 Allergy status to narcotic agent; Z79.899 Other long term (current) drug therapy; Z90.49 Acquired absence of other specified parts of digestive tract; Z82.49 Family history of ischemic heart disease and other diseases of the circulatory system
CPT/HCPCS: 36415; 74176; 80048; 80053; 81001; 82805; 82962; 83690; 83735; 85025; 88305; 88312; 88342; 93005; 93010; 96361; 96365; 96366; 96375; G0378; A9270-GY; C9113; J1450; J1650; J1815; J2060; J2250; J2270; J2704; J2765; J3475; J3480; J7030

== ENCOUNTER 2018-11-12 06:23 | Emergency (ER) | payer MEDICARE ==
[2018-11-12] MEDS ORDERED: GEODON IM ONE ×2 (06:28)
--- NOTE | 2018-11-12 06:36 | Emergency Department Report ---
<FRANCISCA ROBLEDO - Last Filed: 11/12/18 18:05> ED Psych HPI - General Stated Complaint: MH EVAL Time Seen by Provider: 11/12/18 06:25 - Related Data Home Medications Medication Instructions Recorded Confirmed Last Taken AtorvaSTATin [Lipitor] 20 mg PO DAILY 09/19/18 09/19/18 Unknown Furosemide [Lasix TAB] 20 mg PO BID 09/19/18 09/19/18 Unknown Insulin Aspart Protam & Aspart 10 units SQ QAM&QHS 09/19/18 09/19/18 Unknown [NovoLOG Mix 70-30 Flexpen] Insulin Detemir [Levemir VIAL] 55 unit SQ QHS 09/19/18 09/19/18 Unknown glipiZIDE [Glucotrol] 10 mg PO BID 09/19/18 09/19/18 Unknown hydroCHLOROthiazide [HCTZ] 25 mg PO QDAY 09/19/18 09/19/18 Unknown metFORMIN [Glucophage] 500 mg PO BID 09/19/18 09/19/18 Unknown traMADol [Ultram 50 MG tab] 50 mg PO BID PRN 09/19/18 09/19/18 Unknown Doxepin [SINEquan] 50 mg PO QHS 09/21/18 09/21/18 Unknown Previous Rx's Medication Instructions Recorded Last Taken Type Nystas/Diphen/Xyl Visc/Mylanta 15 ml PO TID #200 ml 09/22/18 Unknown Rx [Magic Mouthwash] Ondansetron [Zofran Odt] 4 mg PO Q8HR #30 tab.rapdis 09/22/18 Unknown Rx Allergies Allergy/AdvReac Type Severity Reaction Status Date / Time hydrocodone Allergy Itching Verified 07/27/17 09:00 metoclopramide [From Reglan] Allergy Hives Verified 09/19/18 04:43 ondansetron Allergy Hives Verified 07/27/17 09:00 [From Zofran (as hydrochloride)] prochlorperazine Allergy Hives Verified 09/19/18 04:43 [From Compazine] ED Past Medical Hx - Medications Home Medications: Home Medications Medication Instructions Recorded Confirmed Last Taken Type AtorvaSTATin [Lipitor] 20 mg PO DAILY 09/19/18 09/19/18 Unknown History Furosemide [Lasix TAB] 20 mg PO BID 09/19/18 09/19/18 Unknown History Insulin Aspart Protam & Aspart 10 units SQ QAM&QHS 09/19/18 09/19/18 Unknown History [NovoLOG Mix 70-30 Flexpen] Insulin Detemir [Levemir VIAL] 55 unit SQ QHS 09/19/18 09/19/18 Unknown History glipiZIDE [Glucotrol] 10 mg PO BID 09/19/18 09/19/18 Unknown History hydroCHLOROthiazide [HCTZ] 25 mg PO QDAY 09/19/18 09/19/18 Unknown History metFORMIN [Glucophage] 500 mg PO BID 09/19/18 09/19/18 Unknown History traMADol [Ultram 50 MG tab] 50 mg PO BID PRN 09/19/18 09/19/18 Unknown History Doxepin [SINEquan] 50 mg PO QHS 09/21/18 09/21/18 Unknown History Nystas/Diphen/Xyl Visc/Mylanta 15 ml PO TID #200 ml 09/22/18 Unknown Rx [Magic Mouthwash] Ondansetron [Zofran Odt] 4 mg PO Q8HR #30 tab.rapdis 09/22/18 Unknown Rx ED Medical Decision Making - Lab Data Result diagrams: 11/12/18 08:11 11/12/18 08:11 - Medical Decision Making I had the pleasure of evaluating Ms. Dubose and spoke with her significant other at the bedside. SO described seizure-like activity prior to the episode of agitation. Patient was quiet and not speaking with her eyes closed. Her hands had repetitive opening closing. Her hands were tense. It scared him that she could he couldn't pry her hands. (after that episode stopped, she then became agitated. Ms. Dubose did not recall any of the incident. She feels well at this point. She denies any preceding illness. She is followed at [facility]. At this time she is cleared and appropriate for discharge. She is awake alert and ambulatory without difficulty. Considering patient has not had previous history of agitation, I do suspect seizure-like episode which led to agitation. I have reviewed labs and CT obtained. I have provided seizure precautions to SO and patient. I have provided referral to neurologist. ED Disposition Clinical Impression: Acute psychosis, Seizure Disposition: DC-01 TO HOME OR SELFCARE Is pt being admited?: No Does the pt Need Aspirin: No Condition: Stable Instructions: New-Onset Seizure in Adults (ED) Referrals: JOEL RUDOLPH [Other] - 3-5 Days RENEA SHAVER MD [Staff Physician] - SURINDER Forms: Accompanied Note, Work/School Release Form(ED) <SABINE MENDOZA - Last Filed: 11/13/18 20:16> ED Psych HPI - History of Present Illness Initial Comments: Patient is 38 years old female with history of diabetes, left below-knee amputation and chronic gastritis. Patient does not have any previous history of psychiatric disorder except for an anxiety. Patient brought to the emergency room via EMS for altered mental status. EMS stated that family stated patient was normal until this morning when she woke up screaming and talking out of her mind and became very aggressive and agitated. EMS stated that her pupils initially was pinpoints but patient was not drowsy or does not have any decreased responsiveness. The ER patient is screaming and shouting and very paranoid. Patient immediately given a Geodon 20 mg IM for chemical restraint. Complaint: altered mental status ED Review of Systems ROS: Stated complaint: MH EVAL Other details as noted in HPI Comment: Unobtainable due to pts medical conditions ED Past Medical Hx - Past Medical History Hx Hypertension: Yes Hx CVA: Yes (TIA) Hx Heart Attack/AMI: No Hx Congestive Heart Failure: No Hx Diabetes: Yes (since age of 18) Hx Liver Disease: No Hx Renal Disease: No Hx Sickle Cell Disease: No Hx Headaches / Migraines: Yes ( past hx) Hx Seizures: No Hx Asthma: No Hx COPD: No Hx HIV: No - Surgical History Hx Cholecystectomy: Yes Hx Breast Surgery: Yes Additional Surgical History: X 2LEFT FOOT SURGERY. Hysterectomy. BKA left - Social History Smoking Status: Never Smoker ED Physical Exam - General General appearance: alert, anxious, other (AGITATED) - Head Head exam: Present: atraumatic, normocephalic, normal inspection - Eye Eye exam: Present: normal appearance - ENT ENT exam: Present: normal exam, normal orophraynx, mucous membranes moist - Neck Neck exam: Present: normal inspection, full ROM. Absent: tenderness, me ningismus, lymphadenopathy, thyromegaly - Respiratory Respiratory exam: Present: normal lung sounds bilaterally - Cardiovascular Cardiovascular Exam: Present: regular rate, normal rhythm, normal heart sounds - GI/Abdominal GI/Abdominal exam: Present: soft, normal bowel sounds. Absent: distended, tenderness, guarding, rebound, rigid, organomegaly, mass, bruit, pulsatile mass, hernia - Extremities Exam Extremities exam: Present: normal inspection, full ROM, normal capillary refill - Neurological Exam Neurological exam: Present: altered, CN II-XII intact. Absent: motor sensory deficit - Psychiatric Psychiatric exam: Present: agitated, anxious, manic - Skin Skin exam: Present: warm, intact, normal color ED Course Vital Signs 11/12/18 11/12/18 11/12/18 07:30 08:00 08:04 Temperature Pulse Rate 92 H 96 H Respiratory 11 L 10 L 11 L Rate Blood Pressure 117/81 138/92 Blood Pressure 117/81 [Left] O2 Sat by Pulse 99 99 99 Oximetry 11/12/18 11/12/18 11/12/18 08:40 09:00 09:30 Temperature Pulse Rate 100 H 100 H 105 H Respiratory 20 15 14 Rate Blood Pressure 117/81 117/81 145/92 Blood Pressure [Left] O2 Sat by Pulse Oximetry 11/12/18 11/12/18 11/12/18 09:53 10:00 10:30 Temperature 94.7 F L Pulse Rate 101 H 101 H Respiratory 11 L 13 Rate Blood Pressure 152/103 132/89 Blood Pressure [Left] O2 Sat by Pulse Oximetry 11/12/18 11/12/18 11/12/18 11:00 11:30 12:00 Temperature Pulse Rate 107 H 112 H 113 H Respiratory 14 14 15 Rate Blood Pressure 125/77 136/81 119/65 Blood Pressure [Left] O2 Sat by Pulse Oximetry 11/12/18 11/12/18 11/12/18 12:01 12:30 19:34 Temperature 99.1 F Pulse Rate 112 H 87 Respiratory 15 18 Rate Blood Pressure 126/70 Blood Pressure 137/91 [Left] O2 Sat by Pulse 98 Oximetry ED Medical Decision Making - Lab Data Result diagrams: 11/12/18 08:11 11/12/18 08:11 - EKG Data -: EKG Interpreted by Mo EKG shows normal: sinus rhythm Rate: normal - EKG Data Interpretation: no acute changes - Radiology Data Radiology results: report reviewed - Medical Decision Making Patient is 38 years old female with history of diabetes, left below-knee amputation and chronic gastritis. Patient does not have any previous history of psychiatric disorder except for an anxiety. Patient brought to the emergency room via EMS for altered mental status. EMS stated that family stated patient was normal until this morning when she woke up screaming and talking out of her mind and became very aggressive and agitated. EMS stated that her pupils initially was pinpoints but patient was not drowsy or does not have any decreased responsiveness. The ER patient is screaming and shouting and very paranoid. Patient immediately given a Geodon 20 mg IM for chemical restraint. Labs reviewed and is unremarkable. CT bran is negative for acute finding. Patient is resting comfortably in her bed in no acute distress. Patient is medically clear. Waiting for mental health assessment. Critical Care Time: Yes Critical care time in (mins) excluding proc time.: 30 Critical care attestation.: If time is entered above; I have spent that time in minutes in the direct care of this critically ill patient, excluding procedure time.
[2018-11-12 08:24] LABS: Basophils # (Auto) 0.1 K/mm3 (0.0-0.1); Basophils % (Auto) 0.8 % (0.0-1.8); Eosinophils % (Auto) 0.5 % (0.0-4.3); Hemoglobin 8.7 gm/dl (10.1-14.3); Lymphocytes # (Auto) 1.3 K/mm3 (1.2-5.4); Lymphocytes % (Auto) 16.2 % (13.4-35.0); Mean Corpuscular HGB Conc 32 % (30-34); Mean Corpuscular Volume 86 fl (79-97); Monocytes # (Auto) 0.6 K/mm3 (0.0-0.8); Monocytes % (Auto) 7.2 % (0.0-7.3); Platelet Count 358 K/mm3 (140-440); Red Blood Count 3.16 M/mm3 (3.65-5.03); Red Cell Distribution Width 19.3 % (13.2-15.2)
[2018-11-12 08:45] LABS: BUN/Creatinine Ratio 17; Blood Urea Nitrogen 17 mg/dL (7-17); Calcium 8.3 mg/dL (8.4-10.2); Hemolysis Index 1
--- NOTE | 2018-11-12 08:58 | Cat Scan Report ---
CT HEAD WITHOUT CONTRAST INDICATION / CLINICAL INFORMATION: Altered mental status. TECHNIQUE: Axial imaging performed from the skull apex through the skull base without the use of cont rast. Sagittal and coronal reformatted images. All CT scans at this location are performed using CT dose reduction for ALARA by means of automated exposure control. COMPARISON: 01/29/2014 FINDINGS: CEREBRAL PARENCHYMA: No significant abnormality. No acute territorial infarct. HEMORRHAGE: None. EXTRA-AXIAL SPACES: Normal in size and morphology for the patient's age. VENTRICULAR SYSTEM: Normal in size and morphology for the patient's age. MIDLINE SHIFT OR HERNIATION: None. CEREBELLUM / BRAINSTEM: No significant abnormality. CALVARIUM: No significant abnormality. ORBITS: Normal as visualized. PARANASAL SINUSES / MASTOID AIR CELLS: Normal as visualized. SOFT TISSUES of HEAD: No significant abnormality. ADDITIONAL FINDINGS: None. IMPRESSION: No acute intracranial abnormality. Signer Name: Aditya Sun Jr, MD Signed: 11/12/2018 8:54 AM Workstation Name: [id number]
--- NOTE | 2018-11-12 09:34 | XRay Report ---
CHEST 1 VIEW INDICATION: Medical Clearance Psych. COMPARISON: None FINDINGS: Support devices: None. Heart: Within normal limits. Lungs/Pleura: No acute air space or interstitial disease. Additional findings: None. IMPRESSION: No acute findings. Signer Name: Aditya Sun Jr, MD Signed: 11/12/2018 9:30 AM Workstation Name: [id number]
[2018-11-12] MEDS ORDERED: NACL 0.9% 1000 ML 1,000 ML IV ONE (10:05)
[2018-11-12 10:16] LABS: Amphetamine Screen,Urine PRESUMPTIVE NEGATIVE; Benzodiazepines Screen,Urine PRESUMPTIVE NEGATIVE; Cannabinoid Screen,Urine PRESUMPTIVE NEGATIVE; Cocaine Screen,Urine PRESUMPTIVE NEGATIVE; Methadone Screen,Urine PRESUMPTIVE NEGATIVE; Opiate Screen,Urine PRESUMPTIVE NEGATIVE
[2018-11-12 11:01] LABS: Mucus,Urine FEW /HPF
[2018-11-12 11:11] LABS: Bilirubin,Urine NEG (Negative); Blood,Urine SM (Negative); Color,Urine Yellow (Yellow); Urobilinogen,Urine < 2.0 mg/dL (<2.0)
[2018-11-12 19:34] VITALS: BP 137/91
== END 2018-11-12 19:36 | disposition home or self-care (01) ==
LOC: ED 06:23 → EEVIPCON 06:23 → ED 19:36
DX: R56.9 Unspecified convulsions (principal); I10 Essential (primary) hypertension; E11.9 Type 2 diabetes mellitus without complications; G43.909 Migraine, unspecified, not intractable, without status migrainosus; Z90.49 Acquired absence of other specified parts of digestive tract; Z90.710 Acquired absence of both cervix and uterus; Z98.890 Other specified postprocedural states; Z86.73 Personal history of transient ischemic attack (TIA), and cerebral infarction without residual deficits; Z88.6 Allergy status to analgesic agent
CPT/HCPCS: 36415; 36556; 70450; 71045; 80048; 80307; 81001; 84703; 85025; 93005; 93010; 96360; 96361; 96372; 99285; J3486; J7030; 80320; G0480